=== PATIENT | female | born 1985 | race African-American/Black ===

== ENCOUNTER 2017-09-04 23:10 | Inpatient (IN) | payer MEDICARE, OTHER ==
[~2017-09-04] VITALS: Ht 162.6 cm; Wt 104.3 kg
[~2017-09-04 23:10] MED LIST: ACYCLOVIR400 MG PO; BACTRIM DS TAB1 EAC1 ORAL; CEPHALEXIN500 MG ORAL; CYCLOBENZAPRINE10 MG ORAL; DEXILANT60 MG PO; IBUPROFEN600 M1 PO; IBUPROFEN600 MG ORAL; IRON160 MG PO; NORCO 5-325 TA1 EACH ORAL; PEPCID20 MG PO; PHENAZOPYRIDIN200 MG ORAL; PROAIR HFA8.5 GM IH; TYLENOL EXTRA500 MG ORAL; VALIUM10 MG ORAL; VICODIN1 TAB PO; ZOFRAN4 MG ORAL
[2017-09-04 23:50] VITALS: BP 120/79
[2017-09-05 00:09] LABS: APPEARANCE,URINE TURBID; BILIRUBIN, URINE NEGATIVE (NEGATIVE); COLOR,URINE RED; GLUCOSE, URINE (UA) NEGATIVE (NEGATIVE); KETONES,URINE NEGATIVE (NEGATIVE); LEUKOCYTE ESTERASE ,URINE 3+ (NEGATIVE); NITRITE,URINE NEGATIVE (NEGATIVE); PH,URINE 8 (4.5-8.0); PROTEIN,URINE 3+ (NEGATIVE); UROBILINOGEN,URINE NORMAL MG/DL (0.0-1.0)
[2017-09-05] MEDS ORDERED: Morphine Sulfate 4mg/ml Inj IVP ONE ×2 (00:30→02:30)
[2017-09-05 00:59] LABS: BASOPHILS % (AUTO) 1.2 % (0.0-2.0); EOSINOPHILS % (AUTO) 2.1 % (0.0-3.0); HEMATOCRIT 39.5 % (37.0-47.0); HEMOGLOBIN 13.3 G/DL (12.0-16.0); LYMPHOCYTES % (AUTO) 21.5 % (20.0-45.0); MEAN CORPUSCULAR VOLUME 89 FL (80-99); MONOCYTES % (AUTO) 7.6 % (1.0-10.0); NEUTROPHILS % (AUTO) 67.6 % (45.0-75.0); PLATELET COUNT 297 K/UL (150-450); RED BLOOD COUNT 4.45 M/UL (4.20-5.40); WHITE BLOOD COUNT 15.1 K/UL (4.8-10.8)
[2017-09-05 01:12] LABS: ANION GAP 5 mmol/L (5-15); BLOOD UREA NITROGEN 14 mg/dL (7-18); CALCIUM 8.8 MG/DL (8.5-10.1); CARBON DIOXIDE 29 MMOL/L (21-32); CHLORIDE 103 MMOL/L (98-107); CREATININE 0.8 MG/DL (0.55-1.30); POTASSIUM 3.9 MMOL/L (3.5-5.1); SODIUM 137 MMOL/L (136-145)
[2017-09-05 01:17] LABS: ALANINE AMINOTRANSFERASE 25 U/L (12-78); ALBUMIN 3.4 G/DL (3.4-5.0); ALBUMIN/GLOBULIN RATIO 0.9 (1.0-2.7); ALKALINE PHOSPHATASE 65 U/L (46-116); ASPARTATE AMINO TRANSFERASE 13 U/L (15-37); BILIRUBIN,TOTAL 0.4 MG/DL (0.2-1.0)
[2017-09-05] MEDS ORDERED: cefTRIAXone 1 GM in NS 55 ML IVPB ONE (01:45)
[2017-09-05 02:15] VITALS: BP 112/76
--- NOTE | 2017-09-05 04:03 | Emergency Room Report ---
History of Present Illness General Chief Complaint: Female Urogenital Problems Source: Patient Present Illness HPI 32-year-old female presents ED for evaluation. Patient presenting with painful urination and back pain 4 days. Pain is throbbing, 8 out of 10, nonradiating. Denies nausea or vomiting. Denies fevers or chills. States that she had kidney infection before which felt the same way. Denies chest pain or shortness of breath. No other aggravating relieving factors. Denies any other associated symptoms Allergies: Coded Allergies: ASPIRIN (Verified Allergy, Mild, Rash, 04/25/12) Patient History Past Medical History: asthma, GERD Past Surgical History: none Pertinent Family History: none Social History: Denies: smoking, alcohol use, drug use Last Menstrual Period: no period Now: No Immunizations: UTD Reviewed Nursing Documentation: PMH: Agreed, PSxH: Agreed Nursing Documentation-PMH Hx Cardiac Problems: No - GLAUCOMA, ANEMIA, MRSA NARES Hx Asthma: Yes Hx Gastrointestinal Problems: Yes - gerd, uti Review of Systems All Other Systems: negative except mentioned in HPI Physical Exam Vital Signs Date Time Temp Pulse Resp B/P (MAP) Pulse Ox O2 Delivery O2 Flow Rate FiO2 09/04/17 23:29 98.5 62 18 129/82 99 Room Air 98.4 Sp02 EP Interpretation: reviewed, normal General Appearance: alert, GCS 15, non-toxic, mild distress, obese Head: normocephalic, atraumatic Eyes: bilateral eye normal inspection, bilateral eye PERRL ENT: hearing grossly normal, normal pharynx, no angioedema, normal voice Neck: full range of motion, supple/symm/no masses Respiratory: chest non-tender, lungs clear, normal breath sounds, speaking full sentences Cardiovascular #1: regular rate, rhythm, no edema Cardiovascular #2: 2+ carotid (R), 2+ carotid (L), 2+ radial (R), 2+ radial (L) , 2+ dorsalis pedis (R), 2+ dorsalis pedis (L) Gastrointestinal: normal bowel sounds, non tender, soft, non-distended, no guarding, no rebound Rectal: deferred Genitourinary: normal inspection, CVA tenderness (R) Musculoskeletal: back normal, gait/station normal, normal range of motion, non- tender Neurologic: alert, oriented x3, responsive, motor strength/tone normal, sensory intact, speech normal Psychiatric: judgement/insight normal, memory normal, mood/affect normal, no suicidal/homicidal ideation Reflexes: 3+ bicep (R), 3+ bicep (L), 3+ tricep (R), 3+ tricep (L), 3+ knee (R) , 3+ knee (L) Skin: normal color, no rash, warm/dry, well hydrated Lymphatic: no adenopathy Medical Decision Making Diagnostic Impression: Primary Impression: Pyelonephritis ER Course Hospital Course 32-year-old female presents ED with dysuria, flank pain Differential diagnoses include: UTI, kidney stone, pyelonephritis Clinical course Patient placed on stretcher. After initial history and physical I ordered UA, labs, IV fluids, pain meds, CT labs - marked leukocytosis noted, hb/hematocrit stable, electrolytes okay, UA grossly positive CT A/P - no acute process findings consistent with pyelonephritis. Given the patient has persistent pain despite IV pain medication and do not believe patient will tolerate oral medications at home. Therefore I believe patient should be admitted. Given Rikki. Case discussed with Dr. Glover and he agreed to accept the patient to his service for further care and support Diagnosis - pyelonephritis Admitted to floor in serious condition Labs Test 09/04/17 23:54 09/05/17 00:45 Urine Color Red Urine Appearance Turbid Urine pH 8 (4.5-8.0) Urine Specific [place] 1.010 (1.005-1.035) Urine Protein 3+ (NEGATIVE) Urine Glucose (UA) Negative (NEGATIVE) Urine Ketones Negative (NEGATIVE) Urine Occult Blood 5+ (NEGATIVE) Urine Nitrite Negative (NEGATIVE) Urine Bilirubin Negative (NEGATIVE) Urine Urobilinogen Normal MG/DL (0.0-1.0) Urine Leukocyte Esterase 3+ (NEGATIVE) Urine RBC Tntc /HPF (0 - 2) Urine WBC Tntc /HPF (0 - 2) Urine Squamous Epithelial Cells None /LPF (NONE/OCC) Urine Bacteria Few /HPF (NONE) Urine HCG, Qualitative Negative (NEGATIVE) White Blood Count 15.1 K/UL (4.8-10.8) Red Blood Count 4.45 M/UL (4.20-5.40) Hemoglobin 13.3 G/DL (12.0-16.0) Hematocrit 39.5 % (37.0-47.0) Mean Corpuscular Volume 89 FL (80-99) Mean Corpuscular Hemoglobin 29.9 PG (27.0-31.0) Mean Corpuscular Hemoglobin Concent 33.7 G/DL (32.0-36.0) Red Cell Distribution Width 12.0 % (11.6-14.8) Platelet Count 297 K/UL (150-450) Mean Platelet Volume 9.3 FL (6.5-10.1) Neutrophils (%) (Auto) 67.6 % (45.0-75.0) Lymphocytes (%) (Auto) 21.5 % (20.0-45.0) Monocytes (%) (Auto) 7.6 % (1.0-10.0) Eosinophils (%) (Auto) 2.1 % (0.0-3.0) Basophils (%) (Auto) 1.2 % (0.0-2.0) Sodium Level 137 MMOL/L (136-145) Potassium Level 3.9 MMOL/L (3.5-5.1) Chloride Level 103 MMOL/L (98-107) Carbon Dioxide Level 29 MMOL/L (21-32) Anion Gap 5 mmol/L (5-15) Blood Urea Nitrogen 14 mg/dL (7-18) Creatinine 0.8 MG/DL (0.55-1.30) Estimat Glomerular Filtration Rate > 60 mL/min (>60) Glucose Level 111 MG/DL (74-106) Calcium Level 8.8 MG/DL (8.5-10.1) Total Bilirubin 0.4 MG/DL (0.2-1.0) Aspartate Amino Transf (AST/SGOT) 13 U/L (15-37) Alanine Aminotransferase (ALT/SGPT) 25 U/L (12-78) Alkaline Phosphatase 65 U/L (46-116) Total Protein 7.2 G/DL (6.4-8.2) Albumin 3.4 G/DL (3.4-5.0) Globulin 3.8 g/dL Albumin/Globulin Ratio 0.9 (1.0-2.7) CT/MRI/US Diagnostic Results CT/MRI/US Diagnostic Results : Imaging Test Ordered: CT A/P Impression no acute process Last Vital Signs Date Time Temp Pulse Resp B/P (MAP) Pulse Ox O2 Delivery O2 Flow Rate FiO2 09/05/17 00:49 98.5 09/04/17 23:29 62 18 129/82 99 Room Air Status: improved Disposition: ADMITTED INPATIENT Condition: Serious Referrals: NOT CHOSEN IPA/,REFERRING (PCP) KAISER MENSAH M.D. Sep 05, 2017 04:02
[2017-09-05 04:30] VITALS: BP 105/62
[2017-09-05] MEDS ORDERED: Albuterol/Ipratropium 3ml neb HHN PRN (07:30)
[2017-09-05] MEDS ORDERED: Miralax 17gm pkt ORAL PRN (07:30)
[2017-09-05] MEDS: Morphine Sulfate 2mg/ml Inj IVP PRN ×3 (08:30→20:55)
[2017-09-05] MEDS: Heparin 5000 units/ml inj SUBQ SCH ×2 (08:36→20:39)
[2017-09-05 09:00] VITALS: BP 121/80
[2017-09-05] MEDS ORDERED: Cefepime HCl 1 GM in D5W 55 ML IVPB SCH (09:00)
--- NOTE | 2017-09-05 09:57 | Diagnostic Imaging Report ---
Indication: Length pain x4 days Technique: Spiral acquisitions obtained through the abdomen and pelvis. No oral or IV contrast utilized, per urinary stone protocol. Multiplanar reconstructions were generated. Total dose length product 976.5 mGycm. CTDIvol(s) 17.93 mGy. Dose reduction achieved using automated exposure control Comparison: none Findings: No renal or ureteral calculi demonstrated. No hydronephrosis nor hydroureter. The lack of IV contrast limits assessment of the renal parenchyma. No gross renal mass or cyst demonstrated. Lack of IV contrast limits assessment of the other solid organs. Liver, gallbladder, bile ducts, pancreas, spleen, adrenals are unremarkable. No retroperitoneal or mesenteric mass or adenopathy. No pelvic mass or adenopathy. Uterus and adnexal structures are unremarkable. The appendix is normal. No evidence of diverticulosis or diverticulitis. No small bowel distention. No free or loculated intraperitoneal air or fluid. The included lung bases are clear. The bones are unremarkable. Impression: Negative This agrees with the preliminary interpretation provided overnight by [facility] teleradiology service. The CT scanner at [facility] is accredited by the [employer] and the scans are performed using protocols designed to limit radiation exposure to as low as reasonably achievable to attain images of sufficient resolution adequate for diagnostic evaluation.
[2017-09-05] MEDS ORDERED: Vancomycin 1250mg/D5W 250ml 250 ML IVPB SCH (10:00)
--- NOTE | 2017-09-05 11:31 | Consultation ---
History of Present Illness General Date patient seen: Sep 05, 2017 Chief Complaint: Female Urogenital Problems Present Illness HPI 32 y/o F with hx of asthma, GERD, hx of UTI/'kidney infection' presents to ED on 09/04 with dysuria and non radiating back pain (8/10 intensity) of 4 days onset. Denies n/v, f/c, CP, SOB WBC 15, no fever. U/a with significant pyuria. Allergies: Coded Allergies: ASPIRIN (Verified Allergy, Mild, Rash, 04/25/12) Medication History Scheduled Acetaminophen/Hydrocodone (Vicodin), 1-2 TAB PO needed, (Reported) Acyclovir* (Acyclovir*), 400 MG PO DAILY, (Reported) Albuterol Sulfate* (Proair Hfa*), 8.5 GM IH needed, (Reported) Dexlansoprazole (Dexilant), 60 MG PO DAILY, (Reported) Famotidine (Pepcid), 20 MG PO DAILY, (Reported) Miscellaneous Medications Ferrous Sulfate, Dried (Iron), 160 MG PO, (Reported) Discontinued Medications Acetaminophen* (Tylenol Extra Strength*), 500 MG ORAL Q8H PRN for Prn Headache/ Temp > 101 Discontinued Reason: Therapy completed Cephalexin* (Keflex*), 500 MG ORAL EVERY 12 HOURS Discontinued Reason: Therapy completed Cyclobenzaprine Hcl* (Flexeril*), 10 MG ORAL THREE TIMES A DAY Discontinued Reason: Therapy completed Diazepam* (Valium*), 10 MG ORAL TID PRN for For Pain Discontinued Reason: Therapy completed Hydrocodone Bit/Acetaminophen 5-325* ([place] 5-325*), 1 TAB ORAL Q6H PRN for For Pain Discontinued Reason: Therapy completed Hydrocodone Bit/Acetaminophen 5-325* ([place] 5-325*), 1 TAB ORAL Q6H PRN for For Pain Discontinued Reason: Therapy completed Ibuprofen (Ibuprofen), 600 MG PO TID PRN for For Pain Discontinued Reason: Therapy completed Ibuprofen* (Motrin*), 600 MG ORAL Q8H PRN for For Pain Discontinued Reason: Therapy completed Ibuprofen* (Motrin*), 600 MG ORAL Q8H PRN for For Pain Discontinued Reason: Therapy completed Ondansetron (Zofran), 4 MG ORAL Q6H PRN for Nausea & Vomiting Discontinued Reason: Therapy completed Phenazopyridine Hcl* (Pyridium*), 200 MG ORAL THREE TIMES A DAY Discontinued Reason: Therapy completed Trimethoprim/Sulfamethoxazole 160/800* (Bactrim Ds Tablet*), 1 TAB ORAL TWICE A DAY Discontinued Reason: Therapy completed Trimethoprim/Sulfamethoxazole 160/800* (Bactrim Ds Tablet*), 1 TAB ORAL TWICE A DAY Discontinued Reason: Therapy completed Patient History Healthcare decision maker SELF Resuscitation status Full Code Advanced Directive on File No Patient History Narrative PMhx: as above Shx: Denies: smoking, alcohol use, drug use Fhx: non contributory Review of Systems All Other Systems: negative except mentioned in HPI Physical Exam Physical Exam Narrative HEENT: normocephalic, atraumatic, PERRL, normal pharynx Neck: full range of motion, supple/symm/no masses Respiratory: chest non-tender, lungs clear, normal breath sounds, speaking full sentences Cardiovascular regular rate, rhythm, no edema Gastrointestinal: normal bowel sounds, non tender, soft, non-distended, no guarding, no rebound Genitourinary: normal inspection, CVA tenderness (R) Musculoskeletal: back normal, gait/station normal, normal range of motion, non- tender Neurologic: alert, oriented x3, responsive, motor strength/tone normal, sensory intact, speech normal Skin: normal color, no rash, warm/dry, well hydrated Last 24 Hour Vital Signs Date Time Temp Pulse Resp B/P (MAP) Pulse Ox O2 Delivery O2 Flow Rate FiO2 09/05/17 09:00 97.3 60 16 121/80 98 Room Air 97.3 09/05/17 05:00 97.8 68 15 105/62 99 Room Air 97.8 09/05/17 04:30 97.8 61 15 105/62 99 Room Air 97.8 09/05/17 03:25 97.8 09/05/17 02:15 68 14 112/76 97 Room Air 09/05/17 01:19 97.8 09/05/17 00:49 98.5 09/04/17 23:50 65 16 120/79 98 Room Air 09/04/17 23:29 98.5 62 18 129/82 99 Room Air 98.4 Intake and Output 09/04/17 09/05/17 19:00 07:00 Intake Total 1000 ml Balance 1000 ml IV Total 1000 ml Laboratory Tests Test 09/04/17 23:54 09/05/17 00:45 Urine Color Red Urine Appearance Turbid Urine pH 8 (4.5-8.0) Urine Specific [place] 1.010 (1.005-1.035) Urine Protein 3+ (NEGATIVE) H Urine Glucose (UA) Negative (NEGATIVE) Urine Ketones Negative (NEGATIVE) Urine Occult Blood 5+ (NEGATIVE) H Urine Nitrite Negative (NEGATIVE) Urine Bilirubin Negative (NEGATIVE) Urine Urobilinogen Normal MG/DL (0.0-1.0) Urine Leukocyte Esterase 3+ (NEGATIVE) H Urine RBC Tntc /HPF (0 - 2) H Urine WBC Tntc /HPF (0 - 2) H Urine Squamous Epithelial Cells None /LPF (NONE/OCC) Urine Bacteria Few /HPF (NONE) Urine HCG, Qualitative Negative (NEGATIVE) White Blood Count 15.1 K/UL (4.8-10.8) H Red Blood Count 4.45 M/UL (4.20-5.40) Hemoglobin 13.3 G/DL (12.0-16.0) Hematocrit 39.5 % (37.0-47.0) Mean Corpuscular Volume 89 FL (80-99) Mean Corpuscular Hemoglobin 29.9 PG (27.0-31.0) Mean Corpuscular Hemoglobin Concent 33.7 G/DL (32.0-36.0) Red Cell Distribution Width 12.0 % (11.6-14.8) Platelet Count 297 K/UL (150-450) Mean Platelet Volume 9.3 FL (6.5-10.1) Neutrophils (%) (Auto) 67.6 % (45.0-75.0) Lymphocytes (%) (Auto) 21.5 % (20.0-45.0) Monocytes (%) (Auto) 7.6 % (1.0-10.0) Eosinophils (%) (Auto) 2.1 % (0.0-3.0) Basophils (%) (Auto) 1.2 % (0.0-2.0) Sodium Level 137 MMOL/L (136-145) Potassium Level 3.9 MMOL/L (3.5-5.1) Chloride Level 103 MMOL/L (98-107) Carbon Dioxide Level 29 MMOL/L (21-32) Anion Gap 5 mmol/L (5-15) Blood Urea Nitrogen 14 mg/dL (7-18) Creatinine 0.8 MG/DL (0.55-1.30) Estimat Glomerular Filtration Rate > 60 mL/min (>60) Glucose Level 111 MG/DL (74-106) H Calcium Level 8.8 MG/DL (8.5-10.1) Total Bilirubin 0.4 MG/DL (0.2-1.0) Aspartate Amino Transf (AST/SGOT) 13 U/L (15-37) L Alanine Aminotransferase (ALT/SGPT) 25 U/L (12-78) Alkaline Phosphatase 65 U/L (46-116) Total Protein 7.2 G/DL (6.4-8.2) Albumin 3.4 G/DL (3.4-5.0) Globulin 3.8 g/dL Albumin/Globulin Ratio 0.9 (1.0-2.7) L Height (Feet): 5 Height (Inches): 4.00 Weight (Pounds): 230 Medications Current Medications Medications (Trade) Dose Ordered Sig/Autumn Route PRN Reason Start Time Stop Time Status Last Admin Dose Admin Acetaminophen (Tylenol) 650 mg Q4H PRN ORAL fever 09/05/17 07:30 10/05/17 07:29 Albuterol/ Ipratropium (Albuterol/ Ipratropium) 3 ml EVERY 4 HOURS PRN HHN Shortness of Breath 09/05/17 07:30 09/10/17 07:29 Cefepime HCl 1 gm/ Dextrose 55 ml @ 110 mls/hr EVERY 12 HOURS IVPB 09/05/17 09:00 09/12/17 08:59 09/05/17 09:51 Famotidine (Pepcid) 20 mg DAILY ORAL 09/05/17 09:00 10/05/17 08:59 09/05/17 08:30 Heparin Sodium (Porcine) (Heparin 5000 units/ml) 5,000 units EVERY 12 HOURS SUBQ 09/05/17 09:00 10/05/17 08:59 Morphine Sulfate (Morphine Sulfate) 2 mg EVERY 4 HOURS PRN IVP Moderate Pain (Pain Scale 4-6) 09/05/17 07:30 09/12/17 07:29 09/05/17 08:30 Ondansetron HCl (Zofran) 4 mg Q6H PRN IVP Nausea & Vomiting 09/05/17 07:30 10/05/17 07:29 Phenazopyridine HCl (Pyridium) 100 mg TID PRN ORAL dysuria 09/05/17 07:30 09/08/17 07:29 09/05/17 08:30 Polyethylene Glycol (Miralax) 17 gm DAILYPRN PRN ORAL Constipation 09/05/17 07:30 10/05/17 07:29 Temazepam (Restoril) 15 mg HSPRN PRN ORAL Insomnia 09/05/17 07:30 09/12/17 07:29 Vancomycin HCl (Vanco rx to dose) 1 ea DAILY PRN MISC . 09/05/17 08:15 10/05/17 08:14 Vancomycin HCl/ Dextrose 250 ml @ 166.636 mls/hr ONCE IVPB 09/05/17 10:00 09/10/17 09:59 09/05/17 10:53 Vancomycin/Sodium Chloride 250 ml @ 167.007 mls/hr Q8HR@0200,1000,1800 IVPB 09/05/17 18:00 09/10/17 17:59 Assessment/Plan Assessment/Plan Abx: Ceftriaxone x1 09/05 Cefepime 09/05- IV Vancomycin 09/05- Assessment: UTI, possible R pyelo -CT abd/p wo: No renal or ureteral calculi demonstrated. No hydronephrosis nor hydroureter. The lack of IV contrast limits assessment of the renal parenchyma. No gross renal mass or cyst demonstrated. -u/a WBC tntc, nit neg, leuk +3; ucx p Leukocytosis -afebrile -Bcx p GERD Asthma Hx of UTI -04/2016 UCx E.coli (R amp, bactrim, otherwise S) Plan: -d/C IV Vanco #1 -Switch Cefepime #1 back to Ceftriaxone pending urine culture -f/u cx -monitor CBC/BMP, temperatures -pain control Thank you for this consultation. Will continue to follow along with you. Discussed with Amie Norton M.D. Sep 05, 2017 11:31
[2017-09-05 12:00] VITALS: BP 123/72
[2017-09-05 16:02] VITALS: BP 121/63
--- NOTE | 2017-09-05 17:31 | History and Physical ---
History of Present Illness General Date patient seen: Sep 05, 2017 Reason for Hospitalization: Female Urogenital Problems Present Illness HPI 32-year-old female with hx of asthma presents ED for evaluation painful urination and back pain 4 days. Pain is throbbing, 8 out of 10, nonradiating. Denies nausea or vomiting. Denies fevers or chills. States that she had kidney infection before which felt the same way. She was diagnosed to have pyelonephritis and admitted for further management. Allergies: Coded Allergies: ASPIRIN (Verified Allergy, Mild, Rash, 04/25/12) CEFTRIAXONE (Verified Allergy, Mild, Itching, 09/05/17) Medication History Scheduled Acetaminophen/Hydrocodone (Vicodin), 1-2 TAB PO needed, (Reported) Acyclovir* (Acyclovir*), 400 MG PO DAILY, (Reported) Albuterol Sulfate* (Proair Hfa*), 8.5 GM IH needed, (Reported) Dexlansoprazole (Dexilant), 60 MG PO DAILY, (Reported) Famotidine (Pepcid), 20 MG PO DAILY, (Reported) Miscellaneous Medications Ferrous Sulfate, Dried (Iron), 160 MG PO, (Reported) Discontinued Medications Acetaminophen* (Tylenol Extra Strength*), 500 MG ORAL Q8H PRN for Prn Headache/ Temp > 101 Discontinued Reason: Therapy completed Cephalexin* (Keflex*), 500 MG ORAL EVERY 12 HOURS Discontinued Reason: Therapy completed Cyclobenzaprine Hcl* (Flexeril*), 10 MG ORAL THREE TIMES A DAY Discontinued Reason: Therapy completed Diazepam* (Valium*), 10 MG ORAL TID PRN for For Pain Discontinued Reason: Therapy completed Hydrocodone Bit/Acetaminophen 5-325* ([place] 5-325*), 1 TAB ORAL Q6H PRN for For Pain Discontinued Reason: Therapy completed Hydrocodone Bit/Acetaminophen 5-325* ([place] 5-325*), 1 TAB ORAL Q6H PRN for For Pain Discontinued Reason: Therapy completed Ibuprofen (Ibuprofen), 600 MG PO TID PRN for For Pain Discontinued Reason: Therapy completed Ibuprofen* (Motrin*), 600 MG ORAL Q8H PRN for For Pain Discontinued Reason: Therapy completed Ibuprofen* (Motrin*), 600 MG ORAL Q8H PRN for For Pain Discontinued Reason: Therapy completed Ondansetron (Zofran), 4 MG ORAL Q6H PRN for Nausea & Vomiting Discontinued Reason: Therapy completed Phenazopyridine Hcl* (Pyridium*), 200 MG ORAL THREE TIMES A DAY Discontinued Reason: Therapy completed Trimethoprim/Sulfamethoxazole 160/800* (Bactrim Ds Tablet*), 1 TAB ORAL TWICE A DAY Discontinued Reason: Therapy completed Trimethoprim/Sulfamethoxazole 160/800* (Bactrim Ds Tablet*), 1 TAB ORAL TWICE A DAY Discontinued Reason: Therapy completed Patient History Healthcare decision maker SELF Resuscitation status Full Code Advanced Directive on File No Past Medical/Surgical History Past Medical/Surgical History: (1) History of asthma Review of Systems Constitutional: Reports: chills, weakness Genitourinary: Reports: dysuria All Other Systems: negative except mentioned in HPI Physical Exam General Appearance: WD/WN, no apparent distress, alert Lines, tubes and drains: peripheral HEENT: normocephalic, atraumatic, anicteric, mucous membranes moist, PERRL Neck: non-tender, normal alignment, supple Respiratory/Chest: chest wall non-tender, lungs clear, normal breath sounds, no respiratory distress Cardiovascular/Chest: regular rhythm Abdomen: normal bowel sounds, non tender, no organomegaly, no mass Genitourinary/Rectal: normal genital exam Extremities: normal range of motion, non-tender, normal inspection Skin Exam: normal pigmentation Neurologic: sleever II-XII grossly normal Last 24 Hour Vital Signs Date Time Temp Pulse Resp B/P (MAP) Pulse Ox O2 Delivery O2 Flow Rate FiO2 09/05/17 16:02 98.0 53 18 121/63 100 Room Air 98.0 09/05/17 12:00 97.7 57 18 123/72 97 Room Air 97.7 09/05/17 09:00 97.3 60 16 121/80 98 Room Air 97.3 09/05/17 05:00 97.8 68 15 105/62 99 Room Air 97.8 09/05/17 04:30 97.8 61 15 105/62 99 Room Air 97.8 09/05/17 03:25 97.8 09/05/17 02:15 68 14 112/76 97 Room Air 09/05/17 01:19 97.8 09/05/17 00:49 98.5 09/04/17 23:50 65 16 120/79 98 Room Air 09/04/17 23:29 98.5 62 18 129/82 99 Room Air 98.4 Intake and Output 09/04/17 09/05/17 19:00 07:00 Intake Total 1000 ml Balance 1000 ml IV Total 1000 ml Laboratory Tests Test 09/04/17 23:54 09/05/17 00:45 Urine Color Red Urine Appearance Turbid Urine pH 8 (4.5-8.0) Urine Specific [place] 1.010 (1.005-1.035) Urine Protein 3+ (NEGATIVE) H Urine Glucose (UA) Negative (NEGATIVE) Urine Ketones Negative (NEGATIVE) Urine Occult Blood 5+ (NEGATIVE) H Urine Nitrite Negative (NEGATIVE) Urine Bilirubin Negative (NEGATIVE) Urine Urobilinogen Normal MG/DL (0.0-1.0) Urine Leukocyte Esterase 3+ (NEGATIVE) H Urine RBC Tntc /HPF (0 - 2) H Urine WBC Tntc /HPF (0 - 2) H Urine Squamous Epithelial Cells None /LPF (NONE/OCC) Urine Bacteria Few /HPF (NONE) Urine HCG, Qualitative Negative (NEGATIVE) White Blood Count 15.1 K/UL (4.8-10.8) H Red Blood Count 4.45 M/UL (4.20-5.40) Hemoglobin 13.3 G/DL (12.0-16.0) Hematocrit 39.5 % (37.0-47.0) Mean Corpuscular Volume 89 FL (80-99) Mean Corpuscular Hemoglobin 29.9 PG (27.0-31.0) Mean Corpuscular Hemoglobin Concent 33.7 G/DL (32.0-36.0) Red Cell Distribution Width 12.0 % (11.6-14.8) Platelet Count 297 K/UL (150-450) Mean Platelet Volume 9.3 FL (6.5-10.1) Neutrophils (%) (Auto) 67.6 % (45.0-75.0) Lymphocytes (%) (Auto) 21.5 % (20.0-45.0) Monocytes (%) (Auto) 7.6 % (1.0-10.0) Eosinophils (%) (Auto) 2.1 % (0.0-3.0) Basophils (%) (Auto) 1.2 % (0.0-2.0) Sodium Level 137 MMOL/L (136-145) Potassium Level 3.9 MMOL/L (3.5-5.1) Chloride Level 103 MMOL/L (98-107) Carbon Dioxide Level 29 MMOL/L (21-32) Anion Gap 5 mmol/L (5-15) Blood Urea Nitrogen 14 mg/dL (7-18) Creatinine 0.8 MG/DL (0.55-1.30) Estimat Glomerular Filtration Rate > 60 mL/min (>60) Glucose Level 111 MG/DL (74-106) H Calcium Level 8.8 MG/DL (8.5-10.1) Total Bilirubin 0.4 MG/DL (0.2-1.0) Aspartate Amino Transf (AST/SGOT) 13 U/L (15-37) L Alanine Aminotransferase (ALT/SGPT) 25 U/L (12-78) Alkaline Phosphatase 65 U/L (46-116) Total Protein 7.2 G/DL (6.4-8.2) Albumin 3.4 G/DL (3.4-5.0) Globulin 3.8 g/dL Albumin/Globulin Ratio 0.9 (1.0-2.7) L Height (Feet): 5 Height (Inches): 4.00 Weight (Pounds): 230 Medications Current Medications Medications (Trade) Dose Ordered Sig/Autumn Route PRN Reason Start Time Stop Time Status Last Admin Dose Admin Acetaminophen (Tylenol) 650 mg Q4H PRN ORAL fever 09/05/17 07:30 10/05/17 07:29 Albuterol/ Ipratropium (Albuterol/ Ipratropium) 3 ml EVERY 4 HOURS PRN HHN Shortness of Breath 09/05/17 07:30 09/10/17 07:29 Ceftriaxone Sodium 1 gm/ Dextrose 55 ml @ 110 mls/hr Q24H IVPB 09/05/17 21:00 09/12/17 20:59 Escitalopram Oxalate (Lexapro) 10 mg DAILY ORAL 09/05/17 14:00 10/05/17 13:59 09/05/17 14:52 Famotidine (Pepcid) 20 mg DAILY ORAL 09/05/17 09:00 10/05/17 08:59 09/05/17 08:30 Heparin Sodium (Porcine) (Heparin 5000 units/ml) 5,000 units EVERY 12 HOURS SUBQ 09/05/17 09:00 10/05/17 08:59 Morphine Sulfate (Morphine Sulfate) 2 mg EVERY 4 HOURS PRN IVP Moderate Pain (Pain Scale 4-6) 09/05/17 07:30 09/12/17 07:29 09/05/17 15:08 Ondansetron HCl (Zofran) 4 mg Q6H PRN IVP Nausea & Vomiting 09/05/17 07:30 10/05/17 07:29 Phenazopyridine HCl (Pyridium) 100 mg TID PRN ORAL dysuria 09/05/17 07:30 09/08/17 07:29 09/05/17 08:30 Polyethylene Glycol (Miralax) 17 gm DAILYPRN PRN ORAL Constipation 09/05/17 07:30 10/05/17 07:29 Temazepam (Restoril) 15 mg HSPRN PRN ORAL Insomnia 09/05/17 07:30 09/12/17 07:29 Assessment/Plan Problem List: (1) Pyelonephritis ICD Codes: N12 - Tubulo-interstitial nephritis, not specified as acute or chronic SNOMED: 92450747 (2) Dysuria ICD Codes: R30.0 - Dysuria SNOMED: 21056546 (3) History of asthma ICD Codes: Z87.09 - Personal history of other diseases of the respiratory system SNOMED: 853519155 (4) UTI (urinary tract infection) ICD Codes: N39.0 - Urinary tract infection, site not specified SNOMED: 09947337 Assessment/Plan iv abx iv fluids check cultures f/u wbc check urine symptomatic treatment Yo Glover MD Sep 05, 2017 17:31
[2017-09-05] MEDS ORDERED: Vancomycin 750mg/NS 250ml 250 ML IVPB SCH (18:00)
[2017-09-05 18:10] LABS: APPEARANCE,URINE CLEAR; BILIRUBIN, URINE 2+ (NEGATIVE); GLUCOSE, URINE (UA) NEGATIVE (NEGATIVE); KETONES,URINE NEGATIVE (NEGATIVE); LEUKOCYTE ESTERASE ,URINE NEGATIVE (NEGATIVE); NITRITE,URINE POSITIVE (NEGATIVE); PH,URINE 5 (4.5-8.0); PROTEIN,URINE NEGATIVE (NEGATIVE); UROBILINOGEN,URINE 4 MG/DL (0.0-1.0)
[2017-09-05 18:17] LABS: COLOR,URINE ORANGE
[2017-09-05 19:55] VITALS: BP 124/82
[2017-09-05] MEDS ORDERED: cefTRIAXone 1 GM in D5W 55 ML IVPB SCH (21:00)
[2017-09-05] MEDS ORDERED: DiphenhydrAMINE 50mg/ml Inj IVP PRN (21:30)
[2017-09-05] MEDS ORDERED: Solu-MEDROL 125mg Inj IVP ONE (21:30)
--- NOTE | 2017-09-05 21:55 | Consultation ---
History of Present Illness General Date patient seen: Sep 05, 2017 Chief Complaint: Female Urogenital Problems Present Illness HPI 32-year-old female presents ED for evaluation. Patient presenting with painful urination and back pain 4 days. the pt is pw depressive and anxiety sxs, the pt is having bipolar do the pt stated that she does not want to take her lithium and would like to cont lexapro. Allergies: Coded Allergies: ASPIRIN (Verified Allergy, Mild, Rash, 04/25/12) Medication History Scheduled Acetaminophen/Hydrocodone (Vicodin), 1-2 TAB PO needed, (Reported) Acyclovir* (Acyclovir*), 400 MG PO DAILY, (Reported) Albuterol Sulfate* (Proair Hfa*), 8.5 GM IH needed, (Reported) Dexlansoprazole (Dexilant), 60 MG PO DAILY, (Reported) Famotidine (Pepcid), 20 MG PO DAILY, (Reported) Miscellaneous Medications Ferrous Sulfate, Dried (Iron), 160 MG PO, (Reported) Discontinued Medications Acetaminophen* (Tylenol Extra Strength*), 500 MG ORAL Q8H PRN for Prn Headache/ Temp > 101 Discontinued Reason: Therapy completed Cephalexin* (Keflex*), 500 MG ORAL EVERY 12 HOURS Discontinued Reason: Therapy completed Cyclobenzaprine Hcl* (Flexeril*), 10 MG ORAL THREE TIMES A DAY Discontinued Reason: Therapy completed Diazepam* (Valium*), 10 MG ORAL TID PRN for For Pain Discontinued Reason: Therapy completed Hydrocodone Bit/Acetaminophen 5-325* ([place] 5-325*), 1 TAB ORAL Q6H PRN for For Pain Discontinued Reason: Therapy completed Hydrocodone Bit/Acetaminophen 5-325* ([place] 5-325*), 1 TAB ORAL Q6H PRN for For Pain Discontinued Reason: Therapy completed Ibuprofen (Ibuprofen), 600 MG PO TID PRN for For Pain Discontinued Reason: Therapy completed Ibuprofen* (Motrin*), 600 MG ORAL Q8H PRN for For Pain Discontinued Reason: Therapy completed Ibuprofen* (Motrin*), 600 MG ORAL Q8H PRN for For Pain Discontinued Reason: Therapy completed Ondansetron (Zofran), 4 MG ORAL Q6H PRN for Nausea & Vomiting Discontinued Reason: Therapy completed Phenazopyridine Hcl* (Pyridium*), 200 MG ORAL THREE TIMES A DAY Discontinued Reason: Therapy completed Trimethoprim/Sulfamethoxazole 160/800* (Bactrim Ds Tablet*), 1 TAB ORAL TWICE A DAY Discontinued Reason: Therapy completed Trimethoprim/Sulfamethoxazole 160/800* (Bactrim Ds Tablet*), 1 TAB ORAL TWICE A DAY Discontinued Reason: Therapy completed Patient History Limited by: medical condition History Provided By: Patient, Medical Record, PMD Healthcare decision maker SELF Resuscitation status Full Code Advanced Directive on File No Past Medical/Surgical History Past Medical/Surgical History: (1) back strain (2) Acute back pain (3) Muscle spasm (4) Vomiting (5) Vomiting (6) Chest pain (7) Chest pain (8) Pain of right sacroiliac joint (9) UTI (urinary tract infection) (10) Pyelonephritis (11) Dysuria Review of Systems Psychiatric: Reports: prior hx, anxiety, depressed feelings, emotional problems Physical Exam General Appearance: no apparent distress, alert Neurologic: alert, oriented x 3, responsive, depressed affect Last 24 Hour Vital Signs Date Time Temp Pulse Resp B/P (MAP) Pulse Ox O2 Delivery O2 Flow Rate FiO2 09/05/17 19:55 97.7 96 19 124/82 99 97.7 09/05/17 16:02 98.0 53 18 121/63 100 Room Air 98.0 09/05/17 12:00 97.7 57 18 123/72 97 Room Air 97.7 09/05/17 09:00 97.3 60 16 121/80 98 Room Air 97.3 09/05/17 05:00 97.8 68 15 105/62 99 Room Air 97.8 09/05/17 04:30 97.8 61 15 105/62 99 Room Air 97.8 09/05/17 03:25 97.8 09/05/17 02:15 68 14 112/76 97 Room Air 09/05/17 01:19 97.8 09/05/17 00:49 98.5 09/04/17 23:50 65 16 120/79 98 Room Air 09/04/17 23:29 98.5 62 18 129/82 99 Room Air 98.4 Intake and Output 09/04/17 09/05/17 19:00 07:00 Intake Total 1000 ml Balance 1000 ml IV Total 1000 ml Laboratory Tests Test 09/04/17 23:54 09/05/17 00:45 09/05/17 17:00 Urine Color Red [place] Urine Appearance Turbid Clear Urine pH 8 (4.5-8.0) 5 (4.5-8.0) Urine Specific [place] 1.010 (1.005-1.035) 1.015 (1.005-1.035) Urine Protein 3+ (NEGATIVE) H Negative (NEGATIVE) Urine Glucose (UA) Negative (NEGATIVE) Negative (NEGATIVE) Urine Ketones Negative (NEGATIVE) Negative (NEGATIVE) Urine Occult Blood 5+ (NEGATIVE) H 4+ (NEGATIVE) H Urine Nitrite Negative (NEGATIVE) Positive (NEGATIVE) H Urine Bilirubin Negative (NEGATIVE) 2+ (NEGATIVE) H Urine Urobilinogen Normal MG/DL (0.0-1.0) 4 MG/DL (0.0-1.0) H Urine Leukocyte Esterase 3+ (NEGATIVE) H Negative (NEGATIVE) Urine RBC Tntc /HPF (0 - 2) H 5-10 /HPF (0 - 2) H Urine WBC Tntc /HPF (0 - 2) H 2-4 /HPF (0 - 2) Urine Squamous Epithelial Cells None /LPF (NONE/OCC) Few /LPF (NONE/OCC) Urine Bacteria Few /HPF (NONE) Few /HPF (NONE) Urine HCG, Qualitative Negative (NEGATIVE) White Blood Count 15.1 K/UL (4.8-10.8) H Red Blood Count 4.45 M/UL (4.20-5.40) Hemoglobin 13.3 G/DL (12.0-16.0) Hematocrit 39.5 % (37.0-47.0) Mean Corpuscular Volume 89 FL (80-99) Mean Corpuscular Hemoglobin 29.9 PG (27.0-31.0) Mean Corpuscular Hemoglobin Concent 33.7 G/DL (32.0-36.0) Red Cell Distribution Width 12.0 % (11.6-14.8) Platelet Count 297 K/UL (150-450) Mean Platelet Volume 9.3 FL (6.5-10.1) Neutrophils (%) (Auto) 67.6 % (45.0-75.0) Lymphocytes (%) (Auto) 21.5 % (20.0-45.0) Monocytes (%) (Auto) 7.6 % (1.0-10.0) Eosinophils (%) (Auto) 2.1 % (0.0-3.0) Basophils (%) (Auto) 1.2 % (0.0-2.0) Sodium Level 137 MMOL/L (136-145) Potassium Level 3.9 MMOL/L (3.5-5.1) Chloride Level 103 MMOL/L (98-107) Carbon Dioxide Level 29 MMOL/L (21-32) Anion Gap 5 mmol/L (5-15) Blood Urea Nitrogen 14 mg/dL (7-18) Creatinine 0.8 MG/DL (0.55-1.30) Estimat Glomerular Filtration Rate > 60 mL/min (>60) Glucose Level 111 MG/DL (74-106) H Calcium Level 8.8 MG/DL (8.5-10.1) Total Bilirubin 0.4 MG/DL (0.2-1.0) Aspartate Amino Transf (AST/SGOT) 13 U/L (15-37) L Alanine Aminotransferase (ALT/SGPT) 25 U/L (12-78) Alkaline Phosphatase 65 U/L (46-116) Total Protein 7.2 G/DL (6.4-8.2) Albumin 3.4 G/DL (3.4-5.0) Globulin 3.8 g/dL Albumin/Globulin Ratio 0.9 (1.0-2.7) L Urine Ictotest Negative Height (Feet): 5 Height (Inches): 4.00 Weight (Pounds): 230 Medications Current Medications Medications (Trade) Dose Ordered Sig/Autumn Route PRN Reason Start Time Stop Time Status Last Admin Dose Admin Acetaminophen (Tylenol) 650 mg Q4H PRN ORAL fever 09/05/17 07:30 10/05/17 07:29 Albuterol/ Ipratropium (Albuterol/ Ipratropium) 3 ml EVERY 4 HOURS PRN HHN Shortness of Breath 09/05/17 07:30 09/10/17 07:29 Diphenhydramine HCl (Benadryl) 25 mg Q6H PRN IVP Itching 09/05/17 21:30 10/05/17 21:29 09/05/17 21:33 Escitalopram Oxalate (Lexapro) 10 mg DAILY ORAL 09/05/17 14:00 10/05/17 13:59 09/05/17 14:52 Famotidine (Pepcid) 20 mg DAILY ORAL 09/05/17 09:00 10/05/17 08:59 09/05/17 08:30 Heparin Sodium (Porcine) (Heparin 5000 units/ml) 5,000 units EVERY 12 HOURS SUBQ 09/05/17 09:00 10/05/17 08:59 09/05/17 20:39 Morphine Sulfate (Morphine Sulfate) 2 mg EVERY 4 HOURS PRN IVP Moderate Pain (Pain Scale 4-6) 09/05/17 07:30 09/12/17 07:29 09/05/17 20:55 Ondansetron HCl (Zofran) 4 mg Q6H PRN IVP Nausea & Vomiting 09/05/17 07:30 10/05/17 07:29 Phenazopyridine HCl (Pyridium) 100 mg TID PRN ORAL dysuria 09/05/17 07:30 09/08/17 07:29 09/05/17 08:30 Polyethylene Glycol (Miralax) 17 gm DAILYPRN PRN ORAL Constipation 09/05/17 07:30 10/05/17 07:29 Temazepam (Restoril) 15 mg HSPRN PRN ORAL Insomnia 09/05/17 07:30 09/12/17 07:29 Assessment/Plan Status: stable Assessment/Plan bipolar d/o -lexapro -provided sofia/Laila Wellington M.D. Sep 05, 2017 21:55
[2017-09-06] VITALS: BP 127/85
[2017-09-06] MEDS: Morphine Sulfate 2mg/ml Inj IVP PRN ×4 (02:01→21:25)
[2017-09-06] MEDS: Aztreonam 1gm/D5W 55ml IVPB SCH ×6 (05:19→21:25)
[2017-09-06 07:42] LABS: HEMATOCRIT 41.2 % (37.0-47.0); MEAN CORPUSCULAR VOLUME 89 FL (80-99); PLATELET COUNT 292 K/UL (150-450); RED BLOOD COUNT 4.62 M/UL (4.20-5.40)
[2017-09-06 08:00] VITALS: BP 121/62
[2017-09-06 08:05] LABS: ALANINE AMINOTRANSFERASE 23 U/L (12-78); ALBUMIN 3.5 G/DL (3.4-5.0); ALBUMIN/GLOBULIN RATIO 0.8 (1.0-2.7); ALKALINE PHOSPHATASE 63 U/L (46-116); ANION GAP 10 mmol/L (5-15); ASPARTATE AMINO TRANSFERASE 14 U/L (15-37); BILIRUBIN,TOTAL 0.5 MG/DL (0.2-1.0); BLOOD UREA NITROGEN 8 mg/dL (7-18); CALCIUM 9.1 MG/DL (8.5-10.1); CARBON DIOXIDE 26 MMOL/L (21-32); CHLORIDE 104 MMOL/L (98-107); CREATININE 0.7 MG/DL (0.55-1.30); POTASSIUM 4.2 MMOL/L (3.5-5.1); SODIUM 140 MMOL/L (136-145)
[2017-09-06] MEDS: Heparin 5000 units/ml inj SUBQ SCH ×2 (09:00→21:00)
[2017-09-06 12:00] VITALS: BP 121/70
[2017-09-06 16:00] VITALS: BP 108/62
--- NOTE | 2017-09-06 16:58 | Pulmonology Progress Note ---
Assessment/Plan Problems: (1) Pyelonephritis (2) Dysuria (3) History of asthma (4) UTI (urinary tract infection) Assessment/Plan francisco had a allergic reaction to Ceftriaxone which was treated symptomatically check cultures probably can go home in am once we know what kind of microbes she has in her urine. Subjective ROS Limited/Unobtainable: No Constitutional: Reports: no symptoms HEENT: Repors: no symptoms Respiratory: Reports: no symptoms Allergies: Coded Allergies: ASPIRIN (Verified Allergy, Mild, Rash, 04/25/12) CEFTRIAXONE (Verified Allergy, Mild, Itching, 09/05/17) Objective Last 24 Hour Vital Signs Date Time Temp Pulse Resp B/P (MAP) Pulse Ox O2 Delivery O2 Flow Rate FiO2 09/06/17 16:00 98.3 64 18 108/62 95 98.3 09/06/17 12:00 98.0 62 17 121/70 96 Room Air 98.0 09/06/17 08:01 Room Air 09/06/17 08:00 98.2 68 20 121/62 95 98.2 09/06/17 07:20 69 20 Room Air 21 09/06/17 00:00 97.7 53 18 127/85 96 97.7 09/05/17 19:55 97.7 96 19 124/82 99 97.7 Intake and Output 09/05/17 09/06/17 19:00 07:00 Intake Total 1025.000 ml 510 ml Balance 1025.000 ml 510 ml Intake Oral 720 ml 410 ml IV Total 305.000 ml 100 ml # Voids 5 2 Objective General Appearance: WD/WN, no apparent distress, alert Lines, tubes and drains: peripheral HEENT: normocephalic, atraumatic, anicteric, mucous membranes moist, PERRL Neck: non-tender, normal alignment, supple Respiratory/Chest: chest wall non-tender, lungs clear, normal breath sounds, no respiratory distress Cardiovascular/Chest: regular rhythm Abdomen: normal bowel sounds, non tender, no organomegaly, no mass Genitourinary/Rectal: normal genital exam Extremities: normal range of motion, non-tender, normal inspection Skin Exam: normal pigmentation 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 General Appearance: WD/WN Microbiology Date/Time Source Procedure Growth Status 09/04/17 23:54 Urine,Clean Catch Urine Culture - Preliminary Gram Negative Bacillus 1 Resulted Laboratory Tests 09/05/17 17:00: Urine Color [place], Urine Appearance Clear, Urine pH 5, Urine Specific [place] 1.015, Urine Protein Negative, Urine Glucose (UA) Negative, Urine Ketones Negative, Urine Occult Blood 4+H, Urine Nitrite PositiveH, Urine Bilirubin 2+H, Urine Ictotest Negative, Urine Urobilinogen 4H, Urine Leukocyte Esterase Negative, Urine RBC 5-10H, Urine WBC 2-4, Urine Squamous Epithelial Cells Few, Urine Bacteria Few 09/06/17 05:25: White Blood Count 10.0, Red Blood Count 4.62, Hemoglobin 14.0, Hematocrit 41.2, Mean Corpuscular Volume 89, Mean Corpuscular Hemoglobin 30.3, Mean Corpuscular Hemoglobin Concent 34.0, Red Cell Distribution Width 12.0, Platelet Count 292, Mean Platelet Volume 8.1, Neutrophils (%) (Auto) , Lymphocytes (%) (Auto) , Monocytes (%) (Auto) , Eosinophils (%) (Auto) , Basophils (%) (Auto) , Differential Total Cells Counted 100, Neutrophils % (Manual) 90H, Lymphocytes % (Manual) 9L, Monocytes % (Manual) 1, Eosinophils % (Manual) 0, Basophils % ( Manual) 0, Band Neutrophils 0, Platelet Estimate Adequate, Platelet Morphology Normal, Red Blood Cell Morphology Normal, Sodium Level 140, Potassium Level 4.2 , Chloride Level 104, Carbon Dioxide Level 26, Anion Gap 10, Blood Urea Nitrogen 8, Creatinine 0.7, Estimat Glomerular Filtration Rate > 60, Glucose Level 132H, Calcium Level 9.1, Total Bilirubin 0.5, Aspartate Amino Transf (AST/ SGOT) 14L, Alanine Aminotransferase (ALT/SGPT) 23, Alkaline Phosphatase 63, Total Protein 7.7, Albumin 3.5, Globulin 4.2, Albumin/Globulin Ratio 0.8L 09/06/17 09:20: Vancomycin Level Trough < 2.0L Current Medications Medications (Trade) Dose Ordered Sig/Autumn Route PRN Reason Start Time Stop Time Status Last Admin Dose Admin Acetaminophen (Tylenol) 650 mg Q4H PRN ORAL fever 09/05/17 07:30 10/05/17 07:29 Albuterol/ Ipratropium (Albuterol/ Ipratropium) 3 ml EVERY 4 HOURS PRN HHN Shortness of Breath 09/05/17 07:30 09/10/17 07:29 Aztreonam 1 gm/ Dextrose 55 ml @ 110 mls/hr EVERY 8 HOURS IVPB 09/06/17 06:00 09/13/17 05:59 09/06/17 13:18 Diphenhydramine HCl (Benadryl) 25 mg Q6H PRN IVP Itching 09/05/17 21:30 10/05/17 21:29 09/05/17 21:33 Escitalopram Oxalate (Lexapro) 10 mg DAILY ORAL 09/05/17 14:00 10/05/17 13:59 09/06/17 09:00 Famotidine (Pepcid) 20 mg DAILY ORAL 09/05/17 09:00 10/05/17 08:59 09/06/17 09:00 Heparin Sodium (Porcine) (Heparin 5000 units/ml) 5,000 units EVERY 12 HOURS SUBQ 09/05/17 09:00 10/05/17 08:59 09/05/17 20:39 Morphine Sulfate (Morphine Sulfate) 2 mg EVERY 4 HOURS PRN IVP Moderate Pain (Pain Scale 4-6) 09/05/17 07:30 09/12/17 07:29 09/06/17 16:30 Ondansetron HCl (Zofran) 4 mg Q6H PRN IVP Nausea & Vomiting 09/05/17 07:30 10/05/17 07:29 Phenazopyridine HCl (Pyridium) 100 mg TID PRN ORAL dysuria 09/05/17 07:30 09/08/17 07:29 09/05/17 08:30 Polyethylene Glycol (Miralax) 17 gm DAILYPRN PRN ORAL Constipation 09/05/17 07:30 10/05/17 07:29 Temazepam (Restoril) 15 mg HSPRN PRN ORAL Insomnia 09/05/17 07:30 09/12/17 07:29 Yo Glover MD Sep 06, 2017 16:58
--- NOTE | 2017-09-06 17:26 | Infectious Diseases Prog Note ---
Assessment/Plan Assessment/Plan Assessment: UTI, possible R pyelo -CT abd/p wo: No renal or ureteral calculi demonstrated. No hydronephrosis nor hydroureter. The lack of IV contrast limits assessment of the renal parenchyma. No gross renal mass or cyst demonstrated. -u/a WBC tntc, nit neg, leuk +3; ucx >100K GNRs Leukocytosis , resolved -afebrile -Bcx p GERD Asthma Hx of UTI -04/2016 UCx E.coli (R amp, bactrim, otherwise S) Ceftriaxone Allergy- rash/itching Plan: -Continue empiric Aztreonam #2/-14 pending urine culture; will discharge tomorrow with oral regimen pending sensitivities -09/05 SP IV Vancomcyin #1, Cefepime x1, Ceftriaxone x1 -f/u cx -monitor CBC/BMP, temperatures -pain control Thank you for this consultation. Will continue to follow along with you. Discussed with RN and Dr Glover. Subjective Allergies: Coded Allergies: ASPIRIN (Verified Allergy, Mild, Rash, 04/25/12) CEFTRIAXONE (Verified Allergy, Mild, Itching, 09/05/17) Subjective afebrile leukocytosis resolved ucx GRNs bcx p feeling better developed allergic rx to Ceftriaxone last night. Objective Vital Signs Last 24 Hour Vital Signs Date Time Temp Pulse Resp B/P (MAP) Pulse Ox O2 Delivery O2 Flow Rate FiO2 09/06/17 16:00 98.3 64 18 108/62 95 98.3 09/06/17 12:00 98.0 62 17 121/70 96 Room Air 98.0 09/06/17 08:01 Room Air 09/06/17 08:00 98.2 68 20 121/62 95 98.2 09/06/17 07:20 69 20 Room Air 21 09/06/17 00:00 97.7 53 18 127/85 96 97.7 09/05/17 19:55 97.7 96 19 124/82 99 97.7 Height (Feet): 5 Height (Inches): 4.00 Weight (Pounds): 230 Objective HEENT: normocephalic, atraumatic, PERRL, normal pharynx Neck: full range of motion, supple/symm/no masses Respiratory: chest non-tender, lungs clear, normal breath sounds, speaking full sentences Cardiovascular regular rate, rhythm, no edema Gastrointestinal: normal bowel sounds, non tender, soft, non-distended, no guarding, no rebound Genitourinary: normal inspection, CVA tenderness (R) Musculoskeletal: back normal, gait/station normal, normal range of motion, non- tender Neurologic: alert, oriented x3, responsive, motor strength/tone normal, sensory intact, speech normal Skin: normal color, no rash, warm/dry, well hydrated Microbiology Date/Time Source Procedure Growth Status 09/04/17 23:54 Urine,Clean Catch Urine Culture - Preliminary Gram Negative Bacillus 1 Resulted Laboratory Tests Test 09/06/17 05:25 09/06/17 09:20 White Blood Count 10.0 K/UL (4.8-10.8) Red Blood Count 4.62 M/UL (4.20-5.40) Hemoglobin 14.0 G/DL (12.0-16.0) Hematocrit 41.2 % (37.0-47.0) Mean Corpuscular Volume 89 FL (80-99) Mean Corpuscular Hemoglobin 30.3 PG (27.0-31.0) Mean Corpuscular Hemoglobin Concent 34.0 G/DL (32.0-36.0) Red Cell Distribution Width 12.0 % (11.6-14.8) Platelet Count 292 K/UL (150-450) Mean Platelet Volume 8.1 FL (6.5-10.1) Neutrophils (%) (Auto) % (45.0-75.0) Lymphocytes (%) (Auto) % (20.0-45.0) Monocytes (%) (Auto) % (1.0-10.0) Eosinophils (%) (Auto) % (0.0-3.0) Basophils (%) (Auto) % (0.0-2.0) Differential Total Cells Counted 100 Neutrophils % (Manual) 90 % (45-75) H Lymphocytes % (Manual) 9 % (20-45) L Monocytes % (Manual) 1 % (1-10) Eosinophils % (Manual) 0 % (0-3) Basophils % (Manual) 0 % (0-2) Band Neutrophils 0 % (0-8) Platelet Estimate Adequate Platelet Morphology Normal Red Blood Cell Morphology Normal Sodium Level 140 MMOL/L (136-145) Potassium Level 4.2 MMOL/L (3.5-5.1) Chloride Level 104 MMOL/L (98-107) Carbon Dioxide Level 26 MMOL/L (21-32) Anion Gap 10 mmol/L (5-15) Blood Urea Nitrogen 8 mg/dL (7-18) Creatinine 0.7 MG/DL (0.55-1.30) Estimat Glomerular Filtration Rate > 60 mL/min (>60) Glucose Level 132 MG/DL (74-106) H Calcium Level 9.1 MG/DL (8.5-10.1) Total Bilirubin 0.5 MG/DL (0.2-1.0) Aspartate Amino Transf (AST/SGOT) 14 U/L (15-37) L Alanine Aminotransferase (ALT/SGPT) 23 U/L (12-78) Alkaline Phosphatase 63 U/L (46-116) Total Protein 7.7 G/DL (6.4-8.2) Albumin 3.5 G/DL (3.4-5.0) Globulin 4.2 g/dL Albumin/Globulin Ratio 0.8 (1.0-2.7) L Vancomycin Level Trough < 2.0 ug/mL (5.0-12.0) L Current Medications Medications (Trade) Dose Ordered Sig/[place] Route PRN Reason Start Time Stop Time Status Last Admin Dose Admin Acetaminophen (Tylenol) 650 mg Q4H PRN ORAL fever 09/05/17 07:30 10/05/17 07:29 Albuterol/ Ipratropium (Albuterol/ Ipratropium) 3 ml EVERY 4 HOURS PRN HHN Shortness of Breath 09/05/17 07:30 09/10/17 07:29 Aztreonam 1 gm/ Dextrose 55 ml @ 110 mls/hr EVERY 8 HOURS IVPB 09/06/17 06:00 09/13/17 05:59 09/06/17 13:18 Diphenhydramine HCl (Benadryl) 25 mg Q6H PRN IVP Itching 09/05/17 21:30 10/05/17 21:29 09/05/17 21:33 Escitalopram Oxalate (Lexapro) 10 mg DAILY ORAL 09/05/17 14:00 10/05/17 13:59 09/06/17 09:00 Famotidine (Pepcid) 20 mg DAILY ORAL 09/05/17 09:00 10/05/17 08:59 09/06/17 09:00 Heparin Sodium (Porcine) (Heparin 5000 units/ml) 5,000 units EVERY 12 HOURS SUBQ 09/05/17 09:00 10/05/17 08:59 09/05/17 20:39 Morphine Sulfate (Morphine Sulfate) 2 mg EVERY 4 HOURS PRN IVP Moderate Pain (Pain Scale 4-6) 09/05/17 07:30 09/12/17 07:29 09/06/17 16:30 Ondansetron HCl (Zofran) 4 mg Q6H PRN IVP Nausea & Vomiting 09/05/17 07:30 10/05/17 07:29 Phenazopyridine HCl (Pyridium) 100 mg TID PRN ORAL dysuria 09/05/17 07:30 09/08/17 07:29 09/05/17 08:30 Polyethylene Glycol (Miralax) 17 gm DAILYPRN PRN ORAL Constipation 09/05/17 07:30 10/05/17 07:29 Temazepam (Restoril) 15 mg HSPRN PRN ORAL Insomnia 09/05/17 07:30 09/12/17 07:29 Amie Flores M.D. Sep 06, 2017 17:26
[2017-09-06 19:59] VITALS: BP 128/74
--- NOTE | 2017-09-06 21:30 | General Progress Note ---
Assessment/Plan Assessment/Plan bipolar d/o -lexapro -provided ro/st Subjective Date patient seen: Sep 06, 2017 Neurologic/Psychiatric: Reports: anxiety, depressed, emotional problems Allergies: Coded Allergies: ASPIRIN (Verified Allergy, Mild, Rash, 04/25/12) CEFTRIAXONE (Verified Allergy, Mild, Itching, 09/05/17) Subjective the pt is c/o anxiety the pt has out pt psych does not want tp take lithium she was educated about the possibility of having another manic episode due totaking lexapro without lithium Objective Last 24 Hour Vital Signs Date Time Temp Pulse Resp B/P (MAP) Pulse Ox O2 Delivery O2 Flow Rate FiO2 09/06/17 19:59 97.9 60 18 128/74 96 97.9 09/06/17 19:51 66 18 Room Air 21 09/06/17 16:00 98.3 64 18 108/62 95 98.3 09/06/17 12:00 98.0 62 17 121/70 96 Room Air 98.0 09/06/17 08:01 Room Air 09/06/17 08:00 98.2 68 20 121/62 95 98.2 09/06/17 07:20 69 20 Room Air 21 09/06/17 00:00 97.7 53 18 127/85 96 97.7 Intake and Output 09/05/17 09/06/17 19:00 07:00 Intake Total 1025.000 ml 510 ml Balance 1025.000 ml 510 ml Intake Oral 720 ml 410 ml IV Total 305.000 ml 100 ml # Voids 5 2 Laboratory Tests 09/06/17 05:25: White Blood Count 10.0, Red Blood Count 4.62, Hemoglobin 14.0, Hematocrit 41.2, Mean Corpuscular Volume 89, Mean Corpuscular Hemoglobin 30.3, Mean Corpuscular Hemoglobin Concent 34.0, Red Cell Distribution Width 12.0, Platelet Count 292, Mean Platelet Volume 8.1, Neutrophils (%) (Auto) , Lymphocytes (%) (Auto) , Monocytes (%) (Auto) , Eosinophils (%) (Auto) , Basophils (%) (Auto) , Differential Total Cells Counted 100, Neutrophils % (Manual) 90H, Lymphocytes % (Manual) 9L, Monocytes % (Manual) 1, Eosinophils % (Manual) 0, Basophils % ( Manual) 0, Band Neutrophils 0, Platelet Estimate Adequate, Platelet Morphology Normal, Red Blood Cell Morphology Normal, Sodium Level 140, Potassium Level 4.2 , Chloride Level 104, Carbon Dioxide Level 26, Anion Gap 10, Blood Urea Nitrogen 8, Creatinine 0.7, Estimat Glomerular Filtration Rate > 60, Glucose Level 132H, Calcium Level 9.1, Total Bilirubin 0.5, Aspartate Amino Transf (AST/ SGOT) 14L, Alanine Aminotransferase (ALT/SGPT) 23, Alkaline Phosphatase 63, Total Protein 7.7, Albumin 3.5, Globulin 4.2, Albumin/Globulin Ratio 0.8L 09/06/17 09:20: Vancomycin Level Trough < 2.0L Height (Feet): 5 Height (Inches): 4.00 Weight (Pounds): 230 General Appearance: no apparent distress, alert Neurologic: alert, oriented x 3, responsive, depressed affect Laila Eason M.D. Sep 06, 2017 21:29
[2017-09-06] MEDS ORDERED: Tubing IV Secondary IV ONE (22:54)
[2017-09-07] VITALS: BP 104/52
[2017-09-07] MEDS: Morphine Sulfate 2mg/ml Inj IVP PRN ×3 (01:26→11:11)
[2017-09-07 04:00] VITALS: BP 106/59
[2017-09-07] MEDS: Aztreonam 1gm/D5W 55ml IVPB SCH ×2 (05:39)
[2017-09-07 08:00] VITALS: BP 128/74
[2017-09-07] MEDS: Heparin 5000 units/ml inj SUBQ SCH (08:35)
[2017-09-07 12:00] VITALS: BP 142/94
[2017-09-07] MEDS ORDERED: CIPRO250 MG ORAL (12:44)
--- NOTE | 2017-09-07 16:21 | Infectious Diseases Prog Note ---
Assessment/Plan Assessment/Plan Assessment: UTI, possible R pyelo -CT abd/p wo: No renal or ureteral calculi demonstrated. No hydronephrosis nor hydroureter. The lack of IV contrast limits assessment of the renal parenchyma. No gross renal mass or cyst demonstrated. -u/a WBC tntc, nit neg, leuk +3; ucx >100K GNRs Leukocytosis , resolved -afebrile -Bcx p GERD Asthma Hx of UTI -04/2016 UCx E.coli (R amp, bactrim, otherwise S) Ceftriaxone Allergy- rash/itching Plan: -On Aztreonam #/ for UTI/pyelo; ok to discharge on PO Ciprofloxacin 500mg bid to complete course -09/05 SP IV Vancomcyin #1, Cefepime x1, Ceftriaxone x1 -f/u cx -monitor CBC/BMP, temperatures -pain control Thank you for this consultation. Will continue to follow along with you. Discussed with RN and Dr Glover. Subjective Allergies: Coded Allergies: ASPIRIN (Verified Allergy, Mild, Rash, 04/25/12) CEFTRIAXONE (Verified Allergy, Mild, Itching, 09/05/17) Subjective afebrile UCx briceno S E.coli Bcx NTD feeling much better. Objective Vital Signs Last 24 Hour Vital Signs Date Time Temp Pulse Resp B/P (MAP) Pulse Ox O2 Delivery O2 Flow Rate FiO2 09/07/17 12:00 97.3 54 19 142/94 97 97.3 09/07/17 08:00 98.1 63 20 128/74 94 98.1 09/07/17 07:45 68 18 Room Air 21 09/07/17 04:00 97.8 63 18 106/59 96 97.8 09/07/17 00:00 98.0 59 18 104/52 95 98.0 09/06/17 19:59 97.9 60 18 128/74 96 97.9 09/06/17 19:51 66 18 Room Air 21 Height (Feet): 5 Height (Inches): 4.00 Weight (Pounds): 230 Objective HEENT: normocephalic, atraumatic, PERRL, normal pharynx Neck: full range of motion, supple/symm/no masses Respiratory: chest non-tender, lungs clear, normal breath sounds, speaking full sentences Cardiovascular regular rate, rhythm, no edema Gastrointestinal: normal bowel sounds, non tender, soft, non-distended, no guarding, no rebound Genitourinary: normal inspection, CVA tenderness (R) Musculoskeletal: back normal, gait/station normal, normal range of motion, non- tender Neurologic: alert, oriented x3, responsive, motor strength/tone normal, sensory intact, speech normal Skin: normal color, no rash, warm/dry, well hydrated Microbiology Date/Time Source Procedure Growth Status 09/05/17 12:50 Blood Blood Culture - Preliminary NO GROWTH AFTER 24 HOURS Resulted 09/05/17 12:35 Blood Blood Culture - Preliminary NO GROWTH AFTER 24 HOURS Resulted 09/04/17 23:54 Urine,Clean Catch Urine Culture - Final Escherichia Coli Complete Amie Flores M.D. Sep 07, 2017 16:21
--- NOTE | 2017-09-07 21:56 | General Progress Note ---
Assessment/Plan Assessment/Plan bipolar d/o -lexapro -provided ro/st Subjective Date patient seen: Sep 07, 2017 Allergies: Coded Allergies: ASPIRIN (Verified Allergy, Mild, Rash, 04/25/12) CEFTRIAXONE (Verified Allergy, Mild, Itching, 09/05/17) Subjective the pt is c/o anxiety the pt has out pt psych does not want tp take lithium she was educated about the possibility of having another manic episode due totaking lexapro without lithium Objective Last 24 Hour Vital Signs Date Time Temp Pulse Resp B/P (MAP) Pulse Ox O2 Delivery O2 Flow Rate FiO2 09/07/17 12:00 97.3 54 19 142/94 97 97.3 09/07/17 08:00 98.1 63 20 128/74 94 98.1 09/07/17 07:45 68 18 Room Air 21 09/07/17 04:00 97.8 63 18 106/59 96 97.8 09/07/17 00:00 98.0 59 18 104/52 95 98.0 Intake and Output 09/06/17 09/07/17 19:00 07:00 Intake Total 775 ml 600 ml Balance 775 ml 600 ml Intake Oral 720 ml 600 ml IV Total 55 ml # Voids 4 2 Height (Feet): 5 Height (Inches): 4.00 Weight (Pounds): 230 Laila Eason M.D. Sep 07, 2017 21:56
--- NOTE | 2017-09-07 22:36 | Pulmonology Progress Note ---
Assessment/Plan Problems: (1) Pyelonephritis (2) Dysuria (3) History of asthma (4) UTI (urinary tract infection) Assessment/Plan imrpoving had a allergic reaction to Ceftriaxone which was treated symptomatically check cultures dc home with oral abx, ID neuropsychology medical consultant has left in the chart. Subjective ROS Limited/Unobtainable: No Constitutional: Reports: no symptoms HEENT: Repors: no symptoms Respiratory: Reports: no symptoms Allergies: Coded Allergies: ASPIRIN (Verified Allergy, Mild, Rash, 04/25/12) CEFTRIAXONE (Verified Allergy, Mild, Itching, 09/05/17) Objective Last 24 Hour Vital Signs Date Time Temp Pulse Resp B/P (MAP) Pulse Ox O2 Delivery O2 Flow Rate FiO2 09/07/17 12:00 97.3 54 19 142/94 97 97.3 09/07/17 08:00 98.1 63 20 128/74 94 98.1 09/07/17 07:45 68 18 Room Air 21 09/07/17 04:00 97.8 63 18 106/59 96 97.8 09/07/17 00:00 98.0 59 18 104/52 95 98.0 Intake and Output 09/06/17 09/07/17 19:00 07:00 Intake Total 775 ml 600 ml Balance 775 ml 600 ml Intake Oral 720 ml 600 ml IV Total 55 ml # Voids 4 2 Objective General Appearance: WD/WN, no apparent distress, alert Lines, tubes and drains: peripheral HEENT: normocephalic, atraumatic, anicteric, mucous membranes moist, PERRL Neck: non-tender, normal alignment, supple Respiratory/Chest: chest wall non-tender, lungs clear, normal breath sounds, no respiratory distress Cardiovascular/Chest: regular rhythm Abdomen: normal bowel sounds, non tender, no organomegaly, no mass Genitourinary/Rectal: normal genital exam Extremities: normal range of motion, non-tender, normal inspection Skin Exam: normal pigmentation 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
--- NOTE | 2017-09-08 10:09 | Discharge Summary ---
Discharge Summary Hospital Course Date of Admission Sep 05, 2017 at 03:15 Date of Discharge Sep 07, 2017 at 13:56 Admitting Diagnosis pyelonephritis HPI Yuly Dolan is a 32 year old female who was admitted on Sep 05, 2017 at 03: 15 for Pyelonephritis Hospital Course [id number] Discharge Discharge Disposition Patient was discharged to Home (01) Crystal Calix NP Sep 08, 2017 10:09
--- NOTE | 2017-09-09 02:30 | Discharge Summary 2 SIG ---
DATE OF ADMISSION: 09/05/2017 DATE OF DISCHARGE: 09/07/2017 CONSULTANTS: 1. Laila Eason M.D. 2. Amie Flores M.D. BRIEF HOSPITAL COURSE: The patient is a 32-year-old female with history of ,asthma presented to ED complaining of painful urination with back pain for four days. Pain was described to be throbbing and 8/10 in intensity and nonradiating. She denied nausea or vomiting. Denied fever or chills. She had kidney infection before that felt the same way. On evaluation at ED, blood work showed leukocytosis, WBC of 15, hemoglobin and hematocrit were stable. Urinalysis showed too many to count WBC, too many to count RBC with 3+ leukocyte esterase, negative nitrite, and 3+ protein. She had a CT of the abdomen and pelvis that was unremarkable. She was then admitted for acute pyelonephritis. She was followed by Infectious Disease specialist and was given ceftriaxone. Cefepime was transitioned back to ceftriaxone. She also had symptoms of anxiety. The patient has bipolar disorder and refused to take lithium. She was continued on Lexapro. Urine culture with E. coli. Antibiotic was switched to aztreonam. She was eventually cleared for discharge to continue p.o. antibiotics at home. FINAL DIAGNOSES: 1. Acute pyelonephritis. 2. Urinary tract infection. 3. Dysuria. 4. Asthma. DISPOSITION: The patient was discharged home. DISCHARGE MEDICATIONS: Continue with ciprofloxacin 500 mg b.i.d. for eight more days. Refer to medication list. DISCHARGE INSTRUCTIONS: Follow up with PCP in a week. Yo Glover M.D. I have been assigned to dictate discharge summary on this account and I was not involved in the patient's management. Crystal Calix N.P. DR: CAROLYN JOB#: [id number] CC:
== END 2017-09-07 13:56 | disposition home or self-care (01) | DRG 690 ==
LOC: EMR 23:59 → 4W 09-05 03:15 → EDBEDREQ 09-05 03:38
DX: N10 Acute pyelonephritis (principal); F31.9 Bipolar disorder, unspecified; J45.909 Unspecified asthma, uncomplicated; K21.9 Gastro-esophageal reflux disease without esophagitis
CPT/HCPCS: 36415; 74176; 80053; 80202; 81001; 81003; 81025; 85007; 85025; 87040; 87086; 87181; 94664; 99285

== ENCOUNTER 2017-09-13 19:46 | Emergency (ER) | payer MEDICARE, OTHER ==
[~2017-09-13] VITALS: Ht 162.6 cm; Wt 104.3 kg
[~2017-09-13 19:46] MED LIST changes: +CIPRO250 MG ORAL
[2017-09-13] MEDS ORDERED: LEXAPRO20 MG ORAL (19:58)
[2017-09-13 20:20] VITALS: BP 133/85
[2017-09-13 20:27] LABS: APPEARANCE,URINE CLOUDY; BILIRUBIN, URINE NEGATIVE (NEGATIVE); GLUCOSE, URINE (UA) NEGATIVE (NEGATIVE); KETONES,URINE NEGATIVE (NEGATIVE); LEUKOCYTE ESTERASE ,URINE 1+ (NEGATIVE); NITRITE,URINE NEGATIVE (NEGATIVE); PH,URINE 8 (4.5-8.0); PROTEIN,URINE NEGATIVE (NEGATIVE); UROBILINOGEN,URINE NORMAL MG/DL (0.0-1.0)
[2017-09-13 20:30] LABS: COLOR,URINE YELLOW
[2017-09-13] MEDS ORDERED: BACTRIM DS TAB1 EAC1 ORAL (21:02)
[2017-09-13] MEDS ORDERED: PHENAZOPYRIDIN200 MG ORAL (21:02)
[2017-09-13] MEDS ORDERED: ACETAMINOPHEN-1 EAC1 ORAL (21:02)
[2017-09-13] MEDS ORDERED: Bactrim-DS 1 tab ORAL ONE (21:15)
[2017-09-13 21:18] VITALS: BP 133/85
--- NOTE | 2017-09-14 14:16 | Emergency Room Report ---
History of Present Illness General Chief Complaint: Abdominal Pain Source: Patient Present Illness HPI 32-year-old female presents ED for evaluation. Patient notes burning urination. States that she was discharged from here on the for pyelonephritis. Patient was discharged on Cipro. States she is currently taking the medication but states she still has symptoms. Burning urination with flank pain. Denies fevers or chills. Denies nausea or vomiting. Pain is dull, 5 out of 10, nonradiating. No other aggravating or relieving factors. Denies any other associated symptoms Allergies: Coded Allergies: ASPIRIN (Verified Allergy, Mild, Rash, 04/25/12) CEFTRIAXONE (Verified Allergy, Mild, Itching, 09/05/17) Patient History Past Medical History: asthma Past Surgical History: none Pertinent Family History: none Social History: Denies: smoking, alcohol use, drug use Last Menstrual Period: apr 2017. Now: No Immunizations: UTD Reviewed Nursing Documentation: PMH: Agreed; PSxH: Agreed Nursing Documentation-PMH Hx Cardiac Problems: No - GLAUCOMA, ANEMIA, MRSA NARES Hx Asthma: Yes Hx Gastrointestinal Problems: Yes Review of Systems All Other Systems: negative except mentioned in HPI Physical Exam Vital Signs Date Time Temp Pulse Resp B/P (MAP) Pulse Ox O2 Delivery O2 Flow Rate FiO2 09/13/17 19:52 98.2 69 18 133/85 98 Room Air 98.2 Sp02 EP Interpretation: reviewed, normal General Appearance: no apparent distress, alert, GCS 15, non-toxic Head: normocephalic, atraumatic Eyes: bilateral eye normal inspection, bilateral eye PERRL ENT: hearing grossly normal, normal pharynx, no angioedema, normal voice Neck: full range of motion, supple/symm/no masses Respiratory: chest non-tender, lungs clear, normal breath sounds, speaking full sentences Cardiovascular #1: regular rate, rhythm, no edema Cardiovascular #2: 2+ carotid (R), 2+ carotid (L), 2+ radial (R), 2+ radial (L) , 2+ dorsalis pedis (R), 2+ dorsalis pedis (L) Gastrointestinal: normal bowel sounds, non tender, soft, non-distended, no guarding, no rebound Rectal: deferred Genitourinary: normal inspection, CVA tenderness (R), CVA tenderness (L) Musculoskeletal: back normal, gait/station normal, normal range of motion, non- tender Neurologic: alert, oriented x3, responsive, motor strength/tone normal, sensory intact, speech normal Psychiatric: judgement/insight normal, memory normal, mood/affect normal, no suicidal/homicidal ideation Reflexes: 3+ bicep (R), 3+ bicep (L), 3+ tricep (R), 3+ tricep (L), 3+ knee (R) , 3+ knee (L) Skin: normal color, no rash, warm/dry, well hydrated Lymphatic: no adenopathy Medical Decision Making Diagnostic Impression: Primary Impression: Pyelonephritis ER Course Hospital Course 32-year-old female presents ED with continued dysuria and flank pain. Recently admitted and treated for pyelonephritis Differential diagnoses include: UTI, cystitis, pyelonephritis Clinical course Patient placed on stretcher. After initial history and physical I ordered UA, urine . UA grossly positive. Clinically consistent with pyelonephritis. Patient was discharged on Cipro. I admitted this patient. I reviewed urine culture which was sensitive to all antibiotics. I discussed findings with patient. I offered option for admission for continued IV antibiotics. Patient does not appear septic or toxic at this time. Patient agrees to take abx at home. given bactrim in ED Diagnosis - pyelonephritis Stable and discharged home with prescriptions for Rx Bactrim. Instructed to followup with PMD. Return to ED if symptoms recur or worsen Labs Test 09/13/17 20:07 Urine Color Yellow Urine Appearance Cloudy Urine pH 8 (4.5-8.0) Urine Specific [place] 1.010 (1.005-1.035) Urine Protein Negative (NEGATIVE) Urine Glucose (UA) Negative (NEGATIVE) Urine Ketones Negative (NEGATIVE) Urine Occult Blood 3+ (NEGATIVE) Urine Nitrite Negative (NEGATIVE) Urine Bilirubin Negative (NEGATIVE) Urine Urobilinogen Normal MG/DL (0.0-1.0) Urine Leukocyte Esterase 1+ (NEGATIVE) Urine RBC 5-10 /HPF (0 - 2) Urine WBC 0-2 /HPF (0 - 2) Urine Squamous Epithelial Cells Moderate /LPF (NONE/OCC) Urine Amorphous Sediment Moderate /LPF (NONE) Urine Bacteria Many /HPF (NONE) Urine HCG, Qualitative Negative (NEGATIVE) Last Vital Signs Date Time Temp Pulse Resp B/P (MAP) Pulse Ox O2 Delivery O2 Flow Rate FiO2 09/13/17 21:18 98.2 69 18 133/85 98 Room Air 98.2 Status: improved Disposition: HOME, SELF-CARE Condition: Stable Scripts Phenazopyridine Hcl* (PYRIDIUM*) 200 Mg Tablet 200 MG ORAL THREE TIMES A DAY, #14 TAB 0 Refills Prov: Pj Alvarado MD 09/13/17 Acetaminophen With Codeine (T#3) (TYLENOL #3 TAB*) Y Tab 1 TAB ORAL Q8H PRN for For Pain, #20 TAB Prov: Pj Alvarado MD 09/13/17 Trimethoprim/Sulfamethoxazole 160/800* (BACTRIM DS TABLET*) 1 Each Tablet 1 TAB ORAL Q12H for 10 Days, #20 TAB 0 Refills Prov: Pj Alvarado MD 09/13/17 Patient Instructions: Pyelonephritis, Adult, [id number] Pj Alvarado MD Sep 14, 2017 14:16
== END 2017-09-13 21:18 | disposition home or self-care (01) ==
LOC: EMR 20:19
DX: N12 Tubulo-interstitial nephritis, not specified as acute or chronic (principal); H40.9 Unspecified glaucoma
CPT/HCPCS: 81003; 81025; 87086; 99284

== ENCOUNTER 2017-12-11 19:41 | Emergency (ER) | payer MEDICARE, OTHER ==
[~2017-12-11] VITALS: Ht 162.6 cm; Wt 99.8 kg
[~2017-12-11 19:41] MED LIST changes: +ACETAMINOPHEN-1 EAC1 ORAL; +LEXAPRO20 MG ORAL
[2017-12-11 20:06] VITALS: BP 136/83
[2017-12-11 20:39] LABS: APPEARANCE,URINE CLEAR; BILIRUBIN, URINE NEGATIVE (NEGATIVE); COLOR,URINE PALE YELLOW; GLUCOSE, URINE (UA) NEGATIVE (NEGATIVE); KETONES,URINE NEGATIVE (NEGATIVE); LEUKOCYTE ESTERASE ,URINE NEGATIVE (NEGATIVE); NITRITE,URINE NEGATIVE (NEGATIVE); PH,URINE 6.5 (4.5-8.0); PROTEIN,URINE NEGATIVE (NEGATIVE); UROBILINOGEN,URINE NORMAL MG/DL (0.0-1.0)
[2017-12-11 21:15] VITALS: BP 129/78
--- NOTE | 2017-12-12 14:22 | Emergency Room Report ---
History of Present Illness General Chief Complaint: Hypertension Source: Patient Present Illness HPI 32-year-old female presents ED for evaluation. Patient states that her blood pressure was high today and she took her mom's blood pressure medication. Patient states the blood pressure was 140/90 approximately. Patient denies any chest pain or shortness of breath. States she's been feeling dizzy and nauseous with a headache 1 week. Pain is throbbing, 8 out of 10, nonradiating. Denies any history of hypertension. Denies smoking or drug use. Denies any neck stiffness fevers or chills. No other aggravating relieving factors. Denies any other associated symptoms Allergies: Coded Allergies: ASPIRIN (Verified Allergy, Mild, Rash, 04/25/12) CEFTRIAXONE (Verified Allergy, Mild, Itching, 09/05/17) Patient History Past Medical History: asthma Past Surgical History: none Pertinent Family History: none Social History: Denies: smoking, alcohol use, drug use Last Menstrual Period: None Now: No Immunizations: UTD Reviewed Nursing Documentation: PMH: Agreed; PSxH: Agreed Nursing Documentation-PMH Hx Cardiac Problems: No - GLAUCOMA, ANEMIA, MRSA NARES Hx Asthma: Yes Hx Gastrointestinal Problems: Yes Review of Systems All Other Systems: negative except mentioned in HPI Physical Exam Vital Signs Date Time Temp Pulse Resp B/P (MAP) Pulse Ox O2 Delivery O2 Flow Rate FiO2 12/11/17 19:44 98.7 77 18 136/83 99 Room Air 98.8 Sp02 EP Interpretation: reviewed, normal General Appearance: no apparent distress, alert, GCS 15, non-toxic Head: normocephalic, atraumatic Eyes: bilateral eye normal inspection, bilateral eye PERRL ENT: hearing grossly normal, normal pharynx, no angioedema, normal voice Neck: full range of motion, supple/symm/no masses Respiratory: chest non-tender, lungs clear, normal breath sounds, speaking full sentences Cardiovascular #1: regular rate, rhythm, no edema Cardiovascular #2: 2+ carotid (R), 2+ carotid (L), 2+ radial (R), 2+ radial (L) , 2+ dorsalis pedis (R), 2+ dorsalis pedis (L) Gastrointestinal: normal bowel sounds, non tender, soft, non-distended, no guarding, no rebound Rectal: deferred Genitourinary: normal inspection, no CVA tenderness Musculoskeletal: back normal, gait/station normal, normal range of motion, non- tender Neurologic: alert, oriented x3, responsive, motor strength/tone normal, sensory intact, speech normal Psychiatric: judgement/insight normal, memory normal, mood/affect normal, no suicidal/homicidal ideation Reflexes: 3+ bicep (R), 3+ bicep (L), 3+ tricep (R), 3+ tricep (L), 3+ knee (R) , 3+ knee (L) Skin: normal color, no rash, warm/dry, well hydrated Lymphatic: no adenopathy Medical Decision Making Diagnostic Impression: Primary Impression: Hypertension Qualified Codes: I10 - Essential (primary) hypertension Additional Impression: Headache Qualified Codes: R51 - Headache ER Course Hospital Course 32-year-old female presents ED complaining of elevated BP, c/o dizziness and headache Differential diagnoses include: hypertensive urgency, hypertensive emergency, CVA/TIA Clinical course Patient placed on stretcher. After initial history and physical I ordered CT Head, meds, UA CT head unremarkable. UA negative Discussed findings with the patient. Blood pressure here is within normal limits however patient did take her mother's medication. I explained that BP in the 140s, not an indication to start blood pressure medication at this time I recommend tracking her BP. close followup with PMD I. I feel this is a highly complex case requiring extensive working including EKG/Rhythm strip, Xray/CT/US, Blood/urine lab work, repeat exams while in ED, and administration of strong opiates/narcotics for pain control, admission to hospital or close patient follow up. Diagnosis - hypertension, headache Stable and discharged to home. Instructed to followup with PMD. Return to ED if symptoms recur or worsen Labs Test 12/11/17 20:20 Urine Color Pale yellow Urine Appearance Clear Urine pH 6.5 (4.5-8.0) Urine Specific [place] 1.010 (1.005-1.035) Urine Protein Negative (NEGATIVE) Urine Glucose (UA) Negative (NEGATIVE) Urine Ketones Negative (NEGATIVE) Urine Occult Blood 4+ (NEGATIVE) Urine Nitrite Negative (NEGATIVE) Urine Bilirubin Negative (NEGATIVE) Urine Urobilinogen Normal MG/DL (0.0-1.0) Urine Leukocyte Esterase Negative (NEGATIVE) Urine RBC 2-4 /HPF (0 - 2) Urine WBC 0-2 /HPF (0 - 2) Urine Squamous Epithelial Cells Few /LPF (NONE/OCC) Urine Bacteria Few /HPF (NONE) Urine HCG, Qualitative Negative (NEGATIVE) CT/MRI/US Diagnostic Results CT/MRI/US Diagnostic Results : Imaging Test Ordered: CT Head Impression no acute process Last Vital Signs Date Time Temp Pulse Resp B/P (MAP) Pulse Ox O2 Delivery O2 Flow Rate FiO2 12/11/17 21:15 98.8 66 18 129/78 99 Room Air 98.8 Status: improved Disposition: HOME, SELF-CARE Condition: Stable Referrals: NON PHYSICIAN (PCP) Patient Instructions: Hypertension, [id number] Pj Alvarado MD Dec 12, 2017 14:22
--- NOTE | 2017-12-13 13:42 | Diagnostic Imaging Report ---
Indication: Headache, vertigo, nausea Technique: Continuous helical CT scanning of the head was performed without intravenous contrast material. Axial and coronal 5 mm sections were generated. Radiation dose was minimized using automated exposure control Dose: Total Dose Length Product - DLP 1379.[address] Dose Index - CTDIvol(s) 70.38 mGy. Comparison: none Findings: The ventricular system is normal in size and configuration. There is no shift of midline structures. No abnormal extra-axial fluid collections are noted. There is no evidence of intracerebral bleeding. No other abnormal high or low density areas are noted within the brain. There is minimal ethmoid and sphenoid sinus disease. The calvarium is intact. Restrepo-white differentiation is normal. Impression: Normal CT scan of the head without contrast material. Incidental finding of sinus disease This agrees with the preliminary interpretation provided overnight by [facility]. The CT scanner at [facility] is accredited by the [employer] and the scans are performed using protocols designed to limit radiation exposure to as low as reasonably achievable to attain images of sufficient resolution adequate for diagnostic evaluation.
== END 2017-12-11 21:15 | disposition home or self-care (01) ==
LOC: EMR 20:28
DX: I10 Essential (primary) hypertension (principal); Z88.6 Allergy status to analgesic agent; Z88.1 Allergy status to other antibiotic agents; J45.909 Unspecified asthma, uncomplicated
CPT/HCPCS: 70450; 81003; 81025; 99284

== ENCOUNTER 2019-05-01 22:42 | Emergency (ER) | payer MEDICARE, OTHER ==
[~2019-05-01] VITALS: Ht 162.6 cm; Wt 99.8 kg
[~2019-05-01 22:42] MED LIST changes: +AUGMENTIN 875-1 EAC1 ORAL; +PREDNISONE20 MG ORAL
[2019-05-01] MEDS ORDERED: QVAR7.3 GM INH (22:49)
[2019-05-01] MEDS ORDERED: NORVASC2.5 MG ORAL (22:49)
[2019-05-01] MEDS ORDERED: ADVAIR 250-501 EACH INH (22:49)
[2019-05-01] MEDS ORDERED: LITHIUM CARBON150 MG ORAL (22:49)
[2019-05-01] MEDS ORDERED: LITHIUM CARBON300 MG ORAL (22:49)
[2019-05-01 22:50] VITALS: BP 160/90
--- NOTE | 2019-05-01 23:21 | Emergency Room Report ---
History of Present Illness General Chief Complaint: Chest Pain Source: Patient Present Illness HPI Is a 33-year-old female with a history of high blood pressure. She presents with chief complaint of right-sided chest pain. Onset for last week. Worse with palpation. Worse with lying on that area. No trauma. No fever chills. No shortness of breath. [id number] ibuprofen not helping. No nausea no vomiting. Currently not on any control pill. She does have a family history of blood clot in her mom. Allergies: Coded Allergies: ASPIRIN (Verified Allergy, Mild, Rash, 04/25/12) CEFTRIAXONE (Verified Allergy, Mild, Itching, 09/05/17) Patient History Past Medical History: see triage record, old chart reviewed, HTN Past Surgical History: other Pertinent Family History: none Social History: Denies: smoking Last Menstrual Period: none. Now: No Immunizations: other Reviewed Nursing Documentation: PMH: Agreed; PSxH: Agreed Nursing Documentation-PMH Past Medical History: No History, Except For Hx Hypertension: Yes Hx Asthma: Yes Hx Gastrointestinal Problems: Yes Review of Systems Eye: Denies: eye pain, blurred vision ENT: Denies: ear pain, nose congestion, throat swelling Respiratory: Denies: cough, shortness of breath Cardiovascular: Reports: chest pain; Denies: palpitations Gastrointestinal: Denies: abdominal pain, diarrhea, nausea, vomiting Musculoskeletal: Denies: back pain, joint pain Skin: Denies: rash Neurological: Denies: headache, numbness Endocrine: Denies: increased thirst, increased urine Hematologic/Lymphatic: Denies: easy bruising All Other Systems: negative except mentioned in HPI Physical Exam Vital Signs Date Time Temp Pulse Resp B/P (MAP) Pulse Ox O2 Delivery O2 Flow Rate FiO2 05/01/19 22:44 98.1 64 22 147/93 (111) 98 Room Air 05/01/19 22:50 98 Vitals unremarkable Sp02 EP Interpretation: reviewed, normal General Appearance: well appearing, no apparent distress, alert Head: normocephalic, atraumatic Eyes: bilateral eye PERRL, bilateral eye EOMI ENT: hearing grossly normal, normal pharynx Neck: full range of motion, supple, no meningismus Respiratory: lungs clear, normal breath sounds, other - Producible right mid chest pain Cardiovascular #1: regular rate, rhythm, no murmur Gastrointestinal: normal bowel sounds, non tender, no mass, no organomegaly, no bruit, non-distended Musculoskeletal: back normal, gait/station normal, normal range of motion Psychiatric: mood/affect normal Medical Decision Making Diagnostic Impression: Primary Impression: Chest pain Qualified Codes: R07.9 - Chest pain, unspecified ER Course Patient with atypical chest pain. No evidence of ACS, PE, dissection name a few. Pain is reproducible with palpation. X-rays normal. EKG normal. Troponin negative. D-dimer normal. Patient felt better now. Will discharge home. EKG Diagnostic Results Rate: normal Rhythm: NSR ST Segments: no acute changes Rhythm Strip Diag. Results EP Interpretation: yes Rate: 84 Rhythm: NSR, no PVC's, no ectopy Chest X-Ray Diagnostic Results Chest X-Ray Diagnostic Results : Chest X-Ray Ordered: Yes # of Views/Limited/Complete: 1 View Indication: Chest Pain EP Interpretation: Yes Interpretation: no consolidation, no effusion, no pneumothorax, no acute cardiopulmonary disease Impression: No acute disease Electronically Signed by: Robin Mcintosh MD Last Vital Signs Date Time Temp Pulse Resp B/P (MAP) Pulse Ox O2 Delivery O2 Flow Rate FiO2 05/01/19 22:50 70 20 Room Air 98 05/01/19 22:50 98.1 160/90 98 Status: improved Disposition: HOME, SELF-CARE Condition: Stable Scripts Ibuprofen* (MOTRIN*) 600 Mg Tablet 600 MG ORAL THREE TIMES A DAY, #30 TAB 0 Refills Prov: Robin Mcintosh MD 05/02/19 Hydrocodone/Acetaminophen 5-325* (HYDROCODONE/ACETAMINOPHEN 5-325*) 1 Each Tablet 1 TAB ORAL Q6H PRN for For Pain, #10 TAB 0 Refills Prov: Robin Mcintosh MD 05/02/19 Patient Instructions: Nonspecific Chest Pain Additional Instructions: Follow-up with your doctor in 7 days. Return if symptoms worsen. Robin Mcintosh MD May 01, 2019 23:21
[2019-05-01] MEDS ORDERED: Morphine Sulfate 4mg/ml Inj (IV USE ONLY) IVP ONE (23:30)
[2019-05-01 23:37] LABS: BASOPHILS % (AUTO) 0.6 % (0.0-2.0); EOSINOPHILS % (AUTO) 1.7 % (0.0-3.0); HEMATOCRIT 39.9 % (37.0-47.0); HEMOGLOBIN 13.4 G/DL (12.0-16.0); LYMPHOCYTES % (AUTO) 21.3 % (20.0-45.0); MEAN CORPUSCULAR VOLUME 88 FL (80-99); MONOCYTES % (AUTO) 7.5 % (1.0-10.0); NEUTROPHILS % (AUTO) 68.9 % (45.0-75.0); PLATELET COUNT 301 K/UL (150-450); RED BLOOD COUNT 4.52 M/UL (4.20-5.40); RED CELL DISTRIBUTION WIDTH 11.9 % (11.6-14.8); WHITE BLOOD COUNT 16.4 K/UL (4.8-10.8)
[2019-05-01 23:38] LABS: APPEARANCE,URINE CLEAR; BILIRUBIN, URINE NEGATIVE (NEGATIVE); COLOR,URINE PALE YELLOW; GLUCOSE, URINE (UA) NEGATIVE (NEGATIVE); KETONES,URINE NEGATIVE (NEGATIVE); LEUKOCYTE ESTERASE ,URINE NEGATIVE (NEGATIVE); NITRITE,URINE NEGATIVE (NEGATIVE); PH,URINE 5 (4.5-8.0); PROTEIN,URINE NEGATIVE (NEGATIVE); UROBILINOGEN,URINE NORMAL MG/DL (0.0-1.0)
[2019-05-01 23:40] LABS: ANION GAP 9 mmol/L (5-15); BLOOD UREA NITROGEN 14 mg/dL (7-18); CALCIUM 8.5 MG/DL (8.5-10.1); CARBON DIOXIDE 28 MMOL/L (21-32); CHLORIDE 105 MMOL/L (98-107); CREATININE 0.9 MG/DL (0.55-1.30); POTASSIUM 3.7 MMOL/L (3.5-5.1); SODIUM 142 MMOL/L (136-145)
[2019-05-01 23:45] LABS: ALANINE AMINOTRANSFERASE 22 U/L (12-78); ALBUMIN 3.7 G/DL (3.4-5.0); ALBUMIN/GLOBULIN RATIO 0.9 (1.0-2.7); ALKALINE PHOSPHATASE 61 U/L (46-116); ASPARTATE AMINO TRANSFERASE 12 U/L (15-37); BILIRUBIN,TOTAL 0.5 MG/DL (0.2-1.0)
[2019-05-02] MEDS ORDERED: IBUPROFEN600 MG ORAL (00:23)
[2019-05-02] MEDS ORDERED: HYDROCODON-ACE1 EA15 ORAL (00:23)
[2019-05-02 00:27] VITALS: BP 152/84
--- NOTE | 2019-05-02 12:19 | Diagnostic Imaging Report ---
Indication: Chest pain Comparison: 07/08/2014 A single view chest radiograph was obtained. Findings: Cardiomediastinal appearance is within normal limits for age. The lungs are clear. Pulmonary vascularity is appropriate. The diaphragmatic contour is smooth and costophrenic angles are sharp. No pleural effusions are identified. The bones are unremarkable. Impression: No acute findings
== END 2019-05-02 00:30 | disposition home or self-care (01) ==
LOC: EMR 23:59
DX: R07.9 Chest pain, unspecified (principal); I10 Essential (primary) hypertension; J45.909 Unspecified asthma, uncomplicated; Z88.6 Allergy status to analgesic agent; Z88.1 Allergy status to other antibiotic agents
CPT/HCPCS: 36415; 71045; 80053; 81003; 81025; 84484; 85025; 85379; 93005; 96374; 96375; 99284; J2270; J2405

== ENCOUNTER 2020-05-08 19:35 | Emergency (ER) | payer MEDICARE, OTHER ==
[~2020-05-08] VITALS: Ht 162.6 cm; Wt 99.8 kg
[2020-05-08 19:35] VITALS: BP 152/91
[~2020-05-08 19:35] MED LIST changes: +ADVAIR 250-501 EACH INH; +HYDROCODON-ACE1 EA15 ORAL; +LITHIUM CARBON150 MG ORAL; +LITHIUM CARBON300 MG ORAL; +NORVASC2.5 MG ORAL; +QVAR7.3 GM INH
--- NOTE | 2020-05-08 19:35 | NUR ---
ED Nurse Note: walked in to ed c/o sore throat accompanied by left sided headache onset 2 days ago. pt states feeling throat swelling and pain 2days ago that got worse today. pt states hx tonsilectomy and had been having same s/sx early this year and was seen in this er. vss, nad, aaox4, ambulatory, droplet precaution observed
--- NOTE | 2020-05-08 20:16 | Emergency Room Report ---
History of Present Illness General Chief Complaint: Sore Throat Present Illness HPI 34-year-old female with history of tonsillectomy due to recurrences of strep pharyngitis here complaining of 2 days of constant sore throat with difficulty swallowing. Reports that she usually receives a shot of dexamethasone. Denies any fever and chills, cough or congestion, headache and dizziness, neck stiffness, diarrhea. Has not taken any medication for symptom relief. Denies . Allergies: Coded Allergies: ASPIRIN (Verified Allergy, Mild, Rash, 04/25/12) CEFTRIAXONE (Verified Allergy, Mild, Itching, 09/05/17) COVID-19 Screening Contact w/high risk pt: No Experienced COVID-19 symptoms?: Yes COVID-19 Testing performed CHUCKER: No Patient History Past Medical History: see triage record Past Surgical History: none Pertinent Family History: none Now: No Immunizations: UTD Reviewed Nursing Documentation: PMH: Agreed; PSxH: Agreed Nursing Documentation-PMH Hx Hypertension: Yes Hx Asthma: Yes Hx Gastrointestinal Problems: Yes Review of Systems All Other Systems: negative except mentioned in HPI Physical Exam Vital Signs Date Time Temp Pulse Resp B/P (MAP) Pulse Ox O2 Delivery O2 Flow Rate FiO2 05/08/20 19:35 98.6 85 18 152/91 (111) 98 Room Air Sp02 EP Interpretation: reviewed, normal General Appearance: no apparent distress, alert, GCS 15, non-toxic Head: normocephalic, atraumatic Eyes: bilateral eye normal inspection, bilateral eye PERRL ENT: hearing grossly normal, no angioedema, normal voice, pharyngeal erythema Neck: full range of motion, no meningismus, supple/symm/no masses Respiratory: chest non-tender, lungs clear, normal breath sounds, speaking full sentences Cardiovascular #1: regular rate, rhythm, no edema Cardiovascular #2: 2+ carotid (R), 2+ carotid (L), 2+ radial (R), 2+ radial (L), 2+ dorsalis pedis (R), 2+ dorsalis pedis (L) Gastrointestinal: normal bowel sounds, non tender, soft, non-distended, no guarding, no rebound Rectal: deferred Neurologic: alert, motor strength/tone normal, oriented x3, sensory intact, responsive, speech normal Psychiatric: normal inspection Skin: no rash Lymphatic: adenopathy - Anterior cervical Medical Decision Making PA Attestation ALL Diagnosis and treatment plan reviewed and discussed with my supervising physician Dr. Chavez Diagnostic Impression: Primary Impression: Strep pharyngitis ER Course 34-year-old female with history of tonsillectomy due to recurrences of strep pharyngitis here complaining of 2 days of constant sore throat with difficulty swallowing. Reports that she usually receives a shot of dexamethasone. Denies any fever and chills, cough or congestion, headache and dizziness, neck stiffness, diarrhea. Has not taken any medication for symptom relief. Denies . Ddx considered but are not limited to: strep pharyngitis, URI, tonsillitis, peritonsillar abscess, influneza Vital signs: are WNL, pt. is afebrile H&PE are most consistent with: Strep pharyngitis ORDERS: Prednisone, azithromycin, lidocaine viscous ED INTERVENTIONS: Dexamethasone IM DISCHARGE: At this time pt. is stable for d/c to home. Will provide printed patient care instructions, and any necessary prescriptions. Care plan and follow up instructions have been discussed with the patient prior to discharge. Advised patient to follow primary care provider, take medication as directed, if worsening symptoms return to the emergency room Last Vital Signs Date Time Temp Pulse Resp B/P (MAP) Pulse Ox O2 Delivery O2 Flow Rate FiO2 05/08/20 19:35 98.6 85 18 152/91 (111) 98 Room Air Disposition: HOME, SELF-CARE Condition: Stable Scripts Lidocaine HCl (Lidocaine HCl Viscous) 100 Ml Solution 10 ML MM TID, #120 MG Prov: John Paul Mcbride 05/08/20 Prednisone* (PREDNISONE*) 20 Mg Tablet 40 MG ORAL DAILY for 5 Days, #10 TAB Prov: John Paul Mcbride 05/08/20 Azithromycin* (ZITHROMAX*) 250 Mg Tablet 250 MG ORAL DAILY, #6 TAB 0 Refills Take two tables once daily for 1 day, then one tablet once daily for 4 days. Prov: John Paul Mcbride 05/08/20 Patient Instructions: Strep Throat Additional Instructions: Take medication as directed, follow primary care provider, if worsening symptoms return to the emergency room John Paul Mcbride May 08, 2020 20:16
[2020-05-08] MEDS ORDERED: LIDOCAINE20 MG/1 M1 MM (20:26)
[2020-05-08] MEDS ORDERED: ZITHROMAX250 MG ORAL (20:26)
[2020-05-08] MEDS ORDERED: PREDNISONE20 MG ORAL (20:26)
[2020-05-08 20:40] VITALS: BP 147/88
--- NOTE | 2020-05-08 20:40 | NUR ---
ER DISCHARGE NOTE: Patient is cleared to be discharged per ERMD, pt is aox4, on room air, with stable vital signs. pt was given dc and prescription instructions, pt was able to verbalize understanding, pt id band removed without complications. pt is able to ambulate with steady gait. pt took all belongings.
== END 2020-05-08 20:40 | disposition home or self-care (01) ==
LOC: EMR 20:00
DX: J02.0 Streptococcal pharyngitis (principal); I10 Essential (primary) hypertension; J45.909 Unspecified asthma, uncomplicated; Z88.6 Allergy status to analgesic agent; Z88.8 Allergy status to other drugs, medicaments and biological substances; Z79.899 Other long term (current) drug therapy
CPT/HCPCS: 96372; 99283; J1100

== ENCOUNTER 2020-07-15 10:16 | Emergency (ER) | payer MEDICARE, OTHER ==
[~2020-07-15] VITALS: Ht 162.6 cm; Wt 104.3 kg
[~2020-07-15 10:16] MED LIST changes: +LIDOCAINE20 MG/1 M1 MM; +ZITHROMAX250 MG ORAL
[2020-07-15] MEDS ORDERED: IBUPROFEN600 M1 ORAL (10:55)
[2020-07-15] MEDS ORDERED: LIDOCAINE20 MG/1 M1 MM (10:55)
[2020-07-15 11:00] VITALS: BP 135/87
[2020-07-15] MEDS ORDERED: Acetaminophen 500mg (ES) tab ORAL ONE (11:00)
[2020-07-15] MEDS ORDERED: Lidocaine 2% Visc 15ml soln ORAL ONE (11:00)
[2020-07-15] MEDS ORDERED: CLEOCIN HCL300 MG PO (11:12)
--- NOTE | 2020-07-15 11:12 | NUR ---
ED Nurse Note: Pt walked into ED for toothache x3days. Pt has pain 7/10 in mouth. Pt has been seen by ERMD. Pt is alert and orientedx4, ambulatory. Pt denies any COVID symptoms.
--- NOTE | 2020-07-15 11:38 | Emergency Room Report ---
History of Present Illness General Chief Complaint: Toothache Source: Patient Present Illness HPI Patient is a 35-year-old female presents for increased tooth ache. Reports having increased pain to the left lower side of her jaw. Reports having onset of symptoms for the past 3 to 4 days. Had previously been on antibiotics for similar symptoms. Patient had been seen by dentist who referred her to oral surgeon. Denies any difficulty with opening her mouth. Had been previously taking ibuprofen without any problems although she is allergic to aspirin. Allergies: Coded Allergies: ASPIRIN (Verified Allergy, Mild, Rash, 04/25/12) CEFTRIAXONE (Verified Allergy, Mild, Itching, 09/05/17) COVID-19 Screening Contact w/high risk pt: No Experienced COVID-19 symptoms?: No COVID-19 Testing performed DIRECTOR COLLEGE: No Patient History Past Medical History: see triage record Now: No Reviewed Nursing Documentation: PMH: Agreed; PSxH: Agreed Nursing Documentation-PMH Hx Hypertension: Yes Hx Asthma: Yes Hx Gastrointestinal Problems: Yes Review of Systems All Other Systems: negative except mentioned in HPI Physical Exam Vital Signs Date Time Temp Pulse Resp B/P (MAP) Pulse Ox O2 Delivery O2 Flow Rate FiO2 07/15/20 10:33 98.4 74 16 138/90 (106) 96 Room Air General Appearance: well appearing, no apparent distress, alert, GCS 15 Head: normocephalic, atraumatic ENT: hearing grossly normal, normal voice Neck: full range of motion, supple Respiratory: no respiratory distress, speaking full sentences Cardiovascular #1: normal inspection Gastrointestinal: normal inspection Musculoskeletal: normal inspection, no calf tenderness Neurologic: alert, motor strength/tone normal, [employer] black belt III-XII nml as tested, oriented x3, normal gait Psychiatric: mood/affect normal Skin: no rash Medical Decision Making Diagnostic Impression: Primary Impression: Pain, dental ER Course Patient presents with dental pain. Differential diagnosis include was not limited to dental caries, abscess, gingivitis among others. Patient has a benign exam and does not appear to require any imaging or laboratory testing at this time. Patient does not appear to have any acute medical need at this time. She appears to have some dental issues which do not appear to require any immediate surgical management. Patient did not show any evidence of trismus or wyatt abscess. Patient was advised to follow-up with dentist or oral surgeon soon as possible. Patient was given prescription for medications for symptomatic management as well as oral antibiotics. This medical record is generated with [employer] multimedia manager software. There may be some multimedia manager discrepancies related to use of this software Last Vital Signs Date Time Temp Pulse Resp B/P (MAP) Pulse Ox O2 Delivery O2 Flow Rate FiO2 07/15/20 11:00 98.4 76 18 135/87 98 Room Air Status: improved Disposition: HOME, SELF-CARE Scripts Clindamycin Hcl (CLEOCIN HCL) 300 Mg Capsule 300 MG PO EVERY 8 HOURS, #21 CAP Prov: Roberto Villegas MD 07/15/20 Ibuprofen* (MOTRIN*) 600 Mg Tablet 600 MG ORAL Q8H PRN for FOR PAIN, #20 TAB 0 Refills Prov: Roberto Villegas MD 07/15/20 Lidocaine HCl (Lidocaine HCl Viscous) 100 Ml Solution 10 ML MM TID, #120 MG Prov: Roberto Villegas MD 07/15/20 Referrals: NON PHYSICIAN (PCP) Patient Instructions: Dental Pain Additional Instructions: Follow up with your dentist or oral surgeon for management of your dental pro blem. Return if increased swelling fever or unable to open your mouth. Roberto Villegas MD Jul 15, 2020 11:38
[2020-07-15 11:45] VITALS: BP 138/81
--- NOTE | 2020-07-15 11:45 | NUR ---
ER DISCHARGE NOTE: Patient is cleared to be discharged per ERMD, pt is aox4, on room air, with stable vital signs. pt was given dc and prescription instructions, pt was able to verbalize understanding, pt id band removed. pt is able to ambulate with steady gait. pt took all belongings.
== END 2020-07-15 11:45 | disposition home or self-care (01) ==
LOC: EMR 11:10
DX: K08.89 Other specified disorders of teeth and supporting structures (principal); I10 Essential (primary) hypertension; J45.909 Unspecified asthma, uncomplicated; Z88.6 Allergy status to analgesic agent; Z88.1 Allergy status to other antibiotic agents
CPT/HCPCS: 99282